=== PATIENT | male | born 1945 | race Hispanic/Latino ===

== ENCOUNTER 2018-10-11 12:41 | Observation (INO) | payer OTHER ==
[2018-10-11] MEDS ORDERED: LIDOCAINE 1% W/EPI 1:100,000 MDV 20 ML VIAL ONE ×2 (12:53→16:03)
[2018-10-11] MEDS ORDERED: NA CHLORIDE 0.9% 500 ML ONE (12:59)
[2018-10-11] MEDS ORDERED: DOXYCYCLINE 100 MG CAP PO ONE (12:59)
[2018-10-11] MEDS ORDERED: CEFAZOLIN/SWI 1gm 2 GM/20 ML SYR ONE (13:00)
[2018-10-11] MEDS ORDERED: TETANUS & DIPHTHERIA TOX,ADULT 0.5 ML VIAL ONE (13:00)
[2018-10-11 13:39] LABS: Absolute Lymphocytes (CBC) 0.9 K/uL (0.7-4.9); Basophils % 1.3 % (0-1.3); Hematocrit 30.8 % (39.6-49.0); MPV 10.2 fL (7.6-11.3); RBC Red Blood Cell Count 3.19 M/uL (4.33-5.43)
[2018-10-11] MEDS ORDERED: ONDANSETRON 4 MG/2 ML VIAL ONE ×2 (13:48→17:35)
[2018-10-11 14:12] LABS: Albumin 3.2 g/dL (3.4-5.0); Bilirubin Total 0.4 mg/dL (0.2-1.0); Potassium 4.3 mmol/L (3.5-5.1); Protein, Total 6.2 g/dL (6.4-8.2)
--- NOTE | 2018-10-11 14:27 | RAD REPORT ---
EXAM DESCRIPTION: RAD - Hand Right 3 View - 10/11/2018 1:40 pm CLINICAL HISTORY: Right hand pain, laceration COMPARISON: None. FINDINGS: No fracture is identified. There is no dislocation or periosteal reaction noted. Prominen t degenerative change involves the second DIP joint and IP joint of the thumb. Less prominent degener ative changes elsewhere in the IP joints. Moderate first MCP joint degenerative change. Bandaging is in place. No air or foreign body seen. IMPRESSION: No acute bone finding. No foreign body.
--- NOTE | 2018-10-11 14:28 | RAD REPORT ---
EXAM DESCRIPTION: RAD - Tib Fib Right - 10/11/2018 1:42 pm CLINICAL HISTORY: Leg pain, laceration, possible foreign body COMPARISON: None. FINDINGS: No fracture is identified. There is no dislocation or periosteal reaction noted. No acute or suspicious bony finding. No foreign body in the soft tissues. Arterial calcifications are present. IMPRESSION: No foreign body. No acute bone finding.
--- NOTE | 2018-10-11 16:48 | ER ---
Nurse's Notes [facility] Name: Constantine Bishop Age: 72 yrs Sex: Male : 1945 Arrival Date: 10/11/2018 Time: 12:42 Bed 5 Private MD: Unknown, Unknown Diagnosis: Syncope and collapse;Fall due to bumping against object;Laceration without foreign body of right hand;Laceration without foreign body, right lower leg;Anemia, unspecified;Acute kidney failure;Bradycardia, unspecified;Elevated white blood cell count Presentation: 10/11 12:53 Presenting complaint: Patient states: was out fishing, slipped in water, fell into some oyster shells, laceration to right calf and right palm of hand, pt is on blood thinners, pressure dressing applied, bleeding controlled. Transition of care: patient was not received from another setting of care. Complicating Factors: The patient fell landing on an outstretched hand. Onset of symptoms was October 11, 2018. Risk Assessment: Do you want to hurt yourself or someone else? Patient reports no desire to harm self or others. Initial Sepsis Screen: Does the patient meet any 2 criteria? No. Patient's initial sepsis screen is negative. Does the patient have a suspected source of infection? No. Patient's initial sepsis screen is negative. Care prior to arrival: Bleeding of injury controlled. Injury dressed. 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 - Social history:: Smoking status: Patient/guardian denies using tobacco. - Family history:: not pertinent. - Ebola Screening: : Patient negative for fever greater than or equal to 101.5 degrees Fahrenheit, and additional compatible Ebola Virus Disease symptoms Patient denies exposure to infectious person Patient denies travel to an Ebola-affected area in the 21 days before illness onset No symptoms or risks identified at this time. Screenin:21 Abuse screen: Denies threats or abuse. Denies injuries from another. Nutritional jl7 screening: No deficits noted. Tuberculosis screening: No symptoms or risk factors identified. Fall Risk IV access (20 points). Total Payton Fall Scale indicates No Risk (0-24 pts). Assessment: 13:00 General: Appears in no apparent distress. uncomfortable, Behavior is calm, cooperative, jl7 appropriate for age. Pain: Complains of pain in right leg and right hand. Neuro: Level of Consciousness is awake, alert, obeys commands, Oriented to person, place, time, situation. Cardiovascular: Patient's skin is warm and dry. Respiratory: Airway is patent Respiratory effort is even, unlabored, Respiratory pattern is regular, symmetrical. Musculoskeletal: Circulation, motion, and sensation intact. Injury Description: Laceration sustained to outer aspect of right palm and medial aspect of right calf is contaminated, 2.6 to 7.5 cm long, was sustained 30-60 minutes ago. is bleeding moderately a dressing was applied. 14:00 Reassessment: Patient appears in no apparent distress at this time. No changes from jl7 previously documented assessment. Patient and/or family updated on plan of care and expected duration. Pain level reassessed. Patient is alert, oriented x 3, equal unlabored respirations, skin warm/dry/pink. 15:00 Reassessment: Patient appears in no apparent distress at this time. No changes from jl7 previously documented assessment. Patient and/or family updated on plan of care and expected duration. Pain level reassessed. Patient is alert, oriented x 3, equal unlabored respirations, skin warm/dry/pink. 15:53 Reassessment: Patient appears in no apparent distress at this time. No changes from jl7 previously documented assessment. Patient and/or family updated on plan of care and expected duration. Pain level reassessed. Patient is alert, oriented x 3, equal unlabored respirations, skin warm/dry/pink. 17:24 Reassessment: Pt was being discharged, pt stood up, reported sudden nausea, appeared jl7 pale a diaphoretic, put pt back in bed and laid him down, ERD notified and reports pt will be admitted to the hospital. 17:50 Reassessment: Dr. Valadez at bedside, pt sat up in bed to have x-ray done, immediately jl7 appeared pale and diaphoretic and reported extreme nausea. 18:30 Reassessment: Pt laying in bed, denies pain, no signs of distress noted at this time. jl7 19:00 General: Appears uncomfortable, Behavior is calm, cooperative, appropriate for age. fc Pain: Complains of pain in right cullen and right hand Quality of pain is described as aching, Is continuous, Aggravated by increased activity, repositioning. Neuro: Level of Consciousness is awake, alert, obeys commands, Oriented to person, place, time, situation, Appropriate for age. Cardiovascular: Denies chest pain, Heart tones S1 S2 Capillary refill < 3 seconds. Respiratory: Airway is patent Trachea midline Respiratory effort is even, unlabored, Respiratory pattern is regular, symmetrical, Breath sounds are clear bilaterally. GI: Abdomen is non-distended, Bowel sounds present X 4 quads. Abd is soft and non tender X 4 quads. : No deficits noted. EENT: No deficits noted. Derm: Skin is pink, warm \T\ dry. dressings intact to right leg and right hand are dry and intact. Musculoskeletal: Circulation, motion, and sensation intact. Capillary refill < 3 seconds, Range of motion: intact in all extremities. 20:00 Reassessment: No changes from previously documented assessment. Patient and/or family fc updated on plan of care and expected duration. Pain level reassessed. Patient is alert, oriented x 3, equal unlabored respirations, skin warm/dry/pink. Pt is aware of pending admission as is his friends that are at bedside. Vital Signs: 12:55 BP 165 / 87; Pulse 68; Resp 18 S; Temp 98.2(TE); Pulse Ox 97% on R/A; iw 15:00 BP 162 / 89; Pulse 63; Resp 16 S; Pulse Ox 96% on R/A; jl7 16:00 BP 140 / 92; Pulse 62; Resp 16 S; Pulse Ox 97% on R/A; bp 17:10 BP 145 / 82; Pulse 67; Resp 16 S; Pulse Ox 100% on R/A; bp 17:27 BP 84 / 72; Pulse 63; Resp 22 S; Pulse Ox 96% on R/A; bp 17:35 BP 125 / 58; Pulse 55; Resp 19; Pulse Ox 99% ; bp 17:58 BP 130 / 66; Pulse 58; Resp 16 S; Pulse Ox 97% on R/A; jl7 18:15 BP 140 / 78; Pulse 60; Resp 16 S; Pulse Ox 98% on R/A; jl7 19:00 BP 140 / 78; Pulse 79; Resp 22; Temp 98.0; Pulse Ox 100% on R/A; Pain 4/10; fc 19:39 BP 163 / 78; Pulse 77; Resp 18; Pulse Ox 98% ; fc 20:09 BP 121 / 83; Pulse 78; Resp 18; Temp 98.1; Pulse Ox 100% ; Pain 4/10; fc 19:39 Pt sitting up eating fc ED Course: 12:42 Patient arrived in ED. as 12:43 Unknown, Unknown is Private Physician. as 12:51 Dangelo Cui MD is Attending Physician. karen 12:55 Triage completed. iw 12:55 Ector Baker, SURY is Primary Nurse. jl7 12:56 Arm band placed on. iw 13:41 Hand Right 3 View XRAY In Process Unspecified. EDMS 13:41 Tib Fib Right XRAY In Process Unspecified. EDMS 13:45 Initial lab(s) drawn, by ut, sent to lab. Inserted saline lock: 20 gauge in left jl7 antecubital area, using aseptic technique. Blood collected. 14:21 Patient has correct armband on for positive identification. Bed in low position. Call jl7 light in reach. Side rails up X 1. Pulse ox on. NIBP on. 15:49 Assist provider with laceration repair on outer aspect of right palm that was between jl7 2.6 to 7.5 cm using sutures. Set up tray. Performed by Dangelo Cui MD Dressed with 4X4s, Patient tolerated well. Assist provider with laceration repair on medial aspect of right calf that was between 7.6 to 12.5 cm using sutures. Set up tray. Performed by Dangelo Cui MD Dressed with 4X4s, Patient tolerated well. 16:46 Camilo Hansen MD is Referral Physician. karen 17:25 Repeat lab(s) drawn. by me, sent to lab. Inserted saline lock: 20 gauge in right jl7 antecubital area, using aseptic technique. Blood collected. 17:43 Jacinto Valadez MD is Hospitalizing Provider. karen 17:48 EKG done, by qc lab technician. reviewed by Dangelo Cui MD. sm3 18:04 XRAY Chest (1 view) In Process Unspecified. EDMS 19:30 Patient admitted, IV remains in place. bb Administered Medications: 13:10 Drug: NS 0.9% 500 ml Route: IV; Rate: bolus; Site: right antecubital; jl7 14:00 Follow up: IV Status: Completed infusion; IV Intake: 500ml [facility] 13:15 Drug: Tetanus-Diphtheria Toxoid Adult 0.5 ml {Flat Breakdown Processor: [employer]. Exp: jl7 05/16/2020. Lot #: [id number]. } Route: IM; Site: right deltoid; 13:30 Follow up: Response: No adverse reaction jl7 13:16 Drug: Ancef 2 grams {Note: Administered slow IVP per protocol.} Route: IVPB; Infused jl Over: 30 mins; Site: left antecubital; 13:20 Follow up: Response: No adverse reaction; IV Status: Completed infusion jl7 13:20 Drug: Doxycycline 200 mg Route: PO; jl7 14:10 Follow up: Response: No adverse reaction 7 13:55 Drug: Zofran 4 mg Route: IVP; Site: left antecubital; jl7 14:00 Follow up: Response: No adverse reaction 7 13:58 Not Given (Wrong pharmacy order): Ancef 2 grams IVPB once over 30 mins; (mix in 100 mL [facility] NS) 16:07 Drug: Lidocaine-Epinephrine -1%: (1:100,000) 20 ml {Note: administered by Dr. andrew Cui.} Volume: 20 ml; Route: Infiltration; 17:10 Drug: Bactrim (160 mg-800 mg (DS) 1 tablet Route: PO; bp 19:28 Follow up: Response: No adverse reaction [facility] 17:30 Drug: NS 0.9% 1000 ml Route: IV; Rate: 1 bolus; Site: right antecubital; bp 19:28 Follow up: IV Status: Completed infusion; IV Intake: 1000ml [facility] 17:30 Drug: Zofran 4 mg Route: IVP; Site: right antecubital; bp 19:03 Follow up: Response: No adverse reaction md1 19:29 Drug: NS 0.9% 1000 ml Route: IV; Rate: 125 ml/hr; Site: right antecubital; jl7 20:10 Follow up: Response: No adverse reaction; No change in condition; IV Status: Infusion fc continued upon admission; IV Intake: 125ml Intake: 14:00 IV: 500ml; Total: 500ml. jl7 19:28 IV: 1000ml; Total: 1500ml. jl7 19:34 PO: 150ml; Total: 1650ml. fc 20:10 IV: 125ml; Total: 1775ml. fc Output: 19:34 Urine: 450ml (Voided); Total: 450ml. fc Outcome: 16:47 Discharge ordered by . karen 17:45 Decision to Hospitalize by Provider. [facility] 19:30 Admitted to Tele accompanied by tech, via stretcher, room 201, with chart, Report bb called to Jennifer GA 19:30 Condition: stable 20:10 Patient left the ED. fc Signatures: Dispatcher [employer] EDDangelo Ruiz MD MD cha Chretien, Felicia, RN RN Margo Alamo Brenda RN RN Deidra Davey RN Anuradha Coates RN RN akEctor Alarcon RN RN James Perez RN RN Aviva Downey 3 Corrections: (The following items were deleted from the chart) 15:50 13:45 No provider procedures requiring assistance completed. jl7 jl7
--- NOTE | 2018-10-11 16:49 | EDPHYS ---
Physician Documentation [facility] Name: Constantine Bishop Age: 72 yrs Sex: Male : 1945 Arrival Date: 10/11/2018 Time: 12:42 Bed 5 Private MD: Unknown, Unknown ED Physician Dangelo Cui HPI: 10/11 12:54 This 72 yrs old Male presents to ER via Unassigned with complaints of karen Laceration To Hand, Laceration To Leg. 12:54 The patient has a laceration related to: falling. The laceration(s) is(are) located on karen the right hand and right leg. Onset: The symptoms/episode began/occurred just prior to arrival. Associated signs and symptoms: The patient has no apparent associated signs or symptoms. The patient has not experienced similar symptoms in the past. Historical: - Allergies: 12:55 No Known Allergies; iw - Home Meds: 14:16 Plavix Oral [Active]; jl7 - PMHx: 14:16 CVA; jl7 - PSHx: 14:16 thrombectomy; jl7 - Immunization history:: Adult Immunizations not up to date. - Social history:: Smoking status: Patient/guardian denies using tobacco. - Family history:: not pertinent. - Ebola Screening: : Patient negative for fever greater than or equal to 101.5 degrees Fahrenheit, and additional compatible Ebola Virus Disease symptoms Patient denies exposure to infectious person Patient denies travel to an Ebola-affected area in the 21 days before illness onset No symptoms or risks identified at this time. ROS: 12:55 Constitutional: Negative for fever, chills, and weight loss, Eyes: Negative for injury, karen pain, redness, and discharge, ENT: Negative for injury, pain, and discharge, Neck: Negative for injury, pain, and swelling, Cardiovascular: Negative for chest pain, palpitations, and edema, Respiratory: Negative for shortness of breath, cough, wheezing, and pleuritic chest pain, Abdomen/GI: Negative for abdominal pain, nausea, vomiting, diarrhea, and constipation, Back: Negative for injury and pain, : Negative for injury, bleeding, discharge, and swelling, Skin: Negative for injury, rash, and discoloration, Neuro: Negative for headache, weakness, numbness, tingling, and seizure, Psych: Negative for depression, anxiety, suicide ideation, homicidal ideation, and hallucinations, Allergy/Immunology: Negative for hives, rash, and allergies, Endocrine: Negative for neck swelling, polydipsia, polyuria, polyphagia, and marked weight changes, Hematologic/Lymphatic: Negative for swollen nodes, abnormal bleeding, and unusual bruising. 12:55 MS/extremity: Positive for decreased range of motion, pain, tenderness, of the right hand and right leg. Exam: 12:55 Constitutional: This is a well developed, well nourished patient who is awake, alert, karen and in no acute distress. Head/Face: Normocephalic, atraumatic. Eyes: Pupils equal round and reactive to light, extra-ocular motions intact. Lids and lashes normal. Conjunctiva and sclera are non-icteric and not injected. Cornea within normal limits. Periorbital areas with no swelling, redness, or edema. ENT: Nares patent. No nasal discharge, no septal abnormalities noted. Tympanic membranes are normal and external auditory canals are clear. Oropharynx with no redness, swelling, or masses, exudates, or evidence of obstruction, uvula midline. Mucous membranes moist. Neck: Trachea midline, no thyromegaly or masses palpated, and no cervical lymphadenopathy. Supple, full range of motion without nuchal rigidity, or vertebral point tenderness. No Meningismus. Chest/axilla: Normal chest wall appearance and motion. Nontender with no deformity. No lesions are appreciated. Cardiovascular: Regular rate and rhythm with a normal S1 and S2. No gallops, murmurs, or rubs. Normal PMI, no JVD. No pulse deficits. Respiratory: Lungs have equal breath sounds bilaterally, clear to auscultation and percussion. No rales, rhonchi or wheezes noted. No increased work of breathing, no retractions or nasal flaring. Abdomen/GI: Soft, non-tender, with normal bowel sounds. No distension or tympany. No guarding or rebound. No evidence of tenderness throughout. Back: No spinal tenderness. No costovertebral tenderness. Full range of motion. Male : Normal genitalia with no discharge or lesions. Neuro: Awake and alert, GCS 15, oriented to person, place, time, and situation. Cranial nerves II-XII grossly intact. Motor strength 5/5 in all extremities. Sensory grossly intact. Cerebellar exam normal. Normal gait. Psych: Awake, alert, with orientation to person, place and time. Behavior, mood, and affect are within normal limits. 12:55 Skin: injury, laceration(s), the wound is approximately 2.53 cm(s), with a depth of .25 cm(s), of the right hand, the second wound is approximately 7 cm(s), with a depth of .5 cm(s), of the right cullen. Vital Signs: 12:55 BP 165 / 87; Pulse 68; Resp 18 S; Temp 98.2(TE); Pulse Ox 97% on R/A; iw 15:00 BP 162 / 89; Pulse 63; Resp 16 S; Pulse Ox 96% on R/A; jl7 16:00 BP 140 / 92; Pulse 62; Resp 16 S; Pulse Ox 97% on R/A; bp 17:10 BP 145 / 82; Pulse 67; Resp 16 S; Pulse Ox 100% on R/A; bp 17:27 BP 84 / 72; Pulse 63; Resp 22 S; Pulse Ox 96% on R/A; bp 17:35 BP 125 / 58; Pulse 55; Resp 19; Pulse Ox 99% ; bp 17:58 BP 130 / 66; Pulse 58; Resp 16 S; Pulse Ox 97% on R/A; jl7 18:15 BP 140 / 78; Pulse 60; Resp 16 S; Pulse Ox 98% on R/A; jl7 19:00 BP 140 / 78; Pulse 79; Resp 22; Temp 98.0; Pulse Ox 100% on R/A; Pain 4/10; fc 19:39 BP 163 / 78; Pulse 77; Resp 18; Pulse Ox 98% ; fc 20:09 BP 121 / 83; Pulse 78; Resp 18; Temp 98.1; Pulse Ox 100% ; Pain 4/10; fc 19:39 Pt sitting up eating fc Laceration: 16:42 Wound Repair of 3.5cm ( 1.4in ) subcutaneous laceration to right hand and right leg. karen Irregularly shaped.. Arterial bleeding noted.. Distal neuro/vascular/tendon intact. Anesthesia: Local anesthetic administered with 6 mls of 1% lidocaine w/ Epi. Wound prep: Moderate cleansing by me, Copious irrigation. Skin closed with 8 5-0 Prolene using vertical mattress sutures and sterile technique. Dressed with Neosporin. Patient tolerated well. 16:45 Wound Repair of 10cm ( 3.9in ) subcutaneous laceration to right leg. Irregularly karen shaped.. Skin/tissue flap noted.. Distal neuro/vascular/tendon intact. Anesthesia: Local anesthetic administered with 15 mls of 1% lidocaine w/ Epi. Wound prep: Extensive cleansing with betadine by wy, Copious irrigation. Skin closed with 10 4-0 Prolene using vertical mattress sutures and sterile technique. Dressed with Neosporin. Patient tolerated well. MDM: 12:55 Data reviewed: vital signs, nurses notes, lab test result(s), radiologic studies. [facility] 12:58 Patient medically screened. [facility] 10/11 12:57 Order name: CBC with Diff; Complete Time: 16:42 [facility] 10/11 12:57 Order name: Comprehensive Metabolic Panel; Complete Time: 16:42 [facility] 10/11 17:32 Order name: Basic Metabolic Panel; Complete Time: 18:27 [facility] 10/11 17:32 Order name: CBC with Diff [facility] 10/11 17:32 Order name: LFT's; Complete Time: 18:27 [facility] 10/11 17:32 Order name: Magnesium; Complete Time: 18:27 [facility] 10/11 12:54 Order name: Hand Right 3 View XRAY; Complete Time: 16:42 [facility] 10/11 12:54 Order name: Tib Fib Right XRAY; Complete Time: 16:42 [facility] 10/11 17:32 Order name: NT PRO-BNP; Complete Time: 18:27 [facility] 10/11 17:32 Order name: PT-INR; Complete Time: 18:27 [facility] 10/11 17:32 Order name: Troponin (emerg Dept Use Only); Complete Time: 18:27 [facility] 10/11 17:32 Order name: XRAY Chest (1 view) [facility] 10/11 17:32 Order name: Type And Screen karen 10/11 12:54 Order name: Prolene, Sutures; Complete Time: 12:56 [facility] 10/11 12:54 Order name: Gloves, Sterile; Complete Time: 12:56 [facility] 10/11 12:54 Order name: Setup Suture Tray; Complete Time: 12:56 [facility] 10/11 17:32 Order name: EKG; Complete Time: 17:33 [facility] 09/06 17:32 Order name: Cardiac monitoring; Complete Time: 17:44 [facility] 10/11 17:32 Order name: EKG - Nurse/Tech; Complete Time: 17:44 [facility] 10/11 17:32 Order name: IV Saline Lock; Complete Time: 17:44 [facility] 10/11 17:32 Order name: Labs collected and sent; Complete Time: 17:44 [facility] 10/11 17:32 Order name: O2 Per Protocol; Complete Time: 17:44 [facility] 10/11 17:32 Order name: O2 Sat Monitoring; Complete Time: 17:44 [facility] Administered Medications: 13:10 Drug: NS 0.9% 500 ml Route: IV; Rate: bolus; Site: right antecubital; jl7 14:00 Follow up: IV Status: Completed infusion; IV Intake: 500ml jl 13:15 Drug: Tetanus-Diphtheria Toxoid Adult 0.5 ml {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 Exp: jl7 05/16/2020. Lot #: [id number]. } Route: IM; Site: right deltoid; 13:30 Follow up: Response: No adverse reaction [facility] 13:16 Drug: Ancef 2 grams {Note: Administered slow IVP per protocol.} Route: IVPB; Infused jl7 Over: 30 mins; Site: left antecubital; 13:20 Follow up: Response: No adverse reaction; IV Status: Completed infusion jl 13:20 Drug: Doxycycline 200 mg Route: PO; jl7 14:10 Follow up: Response: No adverse reaction jl7 13:55 Drug: Zofran 4 mg Route: IVP; Site: left antecubital; jl7 14:00 Follow up: Response: No adverse reaction [facility] 13:58 Not Given (Wrong pharmacy order): Ancef 2 grams IVPB once over 30 mins; (mix in 100 mL jl7 NS) 16:07 Drug: Lidocaine-Epinephrine -1%: (1:100,000) 20 ml {Note: administered by Dr. andrew Cui.} Volume: 20 ml; Route: Infiltration; 17:10 Drug: Bactrim (160 mg-800 mg (DS) 1 tablet Route: PO; bp 19:28 Follow up: Response: No adverse reaction jl7 17:30 Drug: NS 0.9% 1000 ml Route: IV; Rate: 1 bolus; Site: right antecubital; bp 19:28 Follow up: IV Status: Completed infusion; IV Intake: 1000ml jl7 17:30 Drug: Zofran 4 mg Route: IVP; Site: right antecubital; bp 19:03 Follow up: Response: No adverse reaction ak1 19:29 Drug: NS 0.9% 1000 ml Route: IV; Rate: 125 ml/hr; Site: right antecubital; jl7 20:10 Follow up: Response: No adverse reaction; No change in condition; IV Status: Infusion fc continued upon admission; IV Intake: 125ml Disposition: 10/11/18 17:45 Hospitalization ordered by Jacinto Valadez for Inpatient Admission. Preliminary diagnosis are Syncope and collapse, Fall due to bumping against object, Laceration without foreign body of right hand, Laceration without foreign body, right lower leg, Anemia, unspecified, Acute kidney failure, Bradycardia, unspecified, Elevated white blood cell count. - Bed requested for Telemetry/MedSurg (Inpatient). - Status is Inpatient Admission. fc - Condition is Fair. - Problem is new. - Symptoms have improved. UTI on Admission? No Signatures: Dispatcher [employer] EDMS Loren Sung Corey, MD MD cha Chretien, Felicia RN RN Deidra Thurston RN RN Ector Baker RN RN jl7 James Max RN RN bp Krenek, Amber RN ak1 Corrections: (The following items were deleted from the chart) 17:42 16:47 10/11/2018 16:47 Discharged to Home. Impression: Laceration without foreign body, karen right lower leg; Laceration without foreign body of right hand; Fall due to bumping against object. Condition is Stable. Forms are Medication Reconciliation Form, Thank You Letter, Antibiotic Education, Prescription Opioid Use. Follow up: Camilo Hansen; When: 2 - 3 days; Reason: Recheck today's complaints, Continuance of care, Re-evaluation by your physician. Problem is new. Symptoms have improved. karen 17:46 17:45 Hospitalization Ordered by Jacinto Valadez MD for Inpatient Admission. Preliminary karen diagnosis is Syncope and collapse; Fall due to bumping against object; Laceration without foreign body of right hand; Laceration without foreign body, right lower leg; Anemia, unspecified. Bed requested for Telemetry/MedSurg (Inpatient). Status is Inpatient Admission. Condition is Fair. Problem is new. Symptoms have improved. UTI on Admission? No. karen 18:00 17:46 10/11/2018 17:45 Hospitalization Ordered by Jacinto Valadez MD for Inpatient karen Admission. Preliminary diagnosis is Syncope and collapse; Fall due to bumping against object; Laceration without foreign body of right hand; Laceration without foreign body, right lower leg; Anemia, unspecified; Acute kidney failure. Bed requested for Telemetry/MedSurg (Inpatient). Status is Inpatient Admission. Condition is Fair. Problem is new. Symptoms have improved. UTI on Admission? No. karen 18:27 18:00 10/11/2018 17:45 Hospitalization Ordered by Jacinto Valadez MD for Inpatient karen Admission. Preliminary diagnosis is Syncope and collapse; Fall due to bumping against object; Laceration without foreign body of right hand; Laceration without foreign body, right lower leg; Anemia, unspecified; Acute kidney failure; Bradycardia, unspecified. Bed requested for Telemetry/MedSurg (Inpatient). Status is Inpatient Admission. Condition is Fair. Problem is new. Symptoms have improved. UTI on Admission? No. karen 18:38 18:27 10/11/2018 17:45 Hospitalization Ordered by Jacinto Valadez MD for Inpatient bd Admission. Preliminary diagnosis is Syncope and collapse; Fall due to bumping against object; Laceration without foreign body of right hand; Laceration without foreign body, right lower leg; Anemia, unspecified; Acute kidney failure; Bradycardia, unspecified; Elevated white blood cell count. Bed requested for Telemetry/MedSurg (Inpatient). Status is Inpatient Admission. Condition is Fair. Problem is new. Symptoms have improved. UTI on Admission? No. karen 20:10 18:38 10/11/2018 17:45 Hospitalization Ordered by Jacinto Valadez MD for Inpatient fc Admission. Preliminary diagnosis is Syncope and collapse; Fall due to bumping against object; Laceration without foreign body of right hand; Laceration without foreign body, right lower leg; Anemia, unspecified; Acute kidney failure; Bradycardia, unspecified; Elevated white blood cell count. Bed requested for Telemetry/MedSurg (Inpatient). Status is Inpatient Admission. Condition is Fair. Problem is new. Symptoms have improved. UTI on Admission? No. bd
[2018-10-11] MEDS ORDERED: SMZ./TMP. 800/160 MG TABLET ONE (17:11)
[2018-10-11] MEDS ORDERED: ONDANSETRON 4 MG (ODT) TAB ONE (17:29)
[2018-10-11] MEDS ORDERED: NA CHLORIDE 0.9% 1,000 ML ONE ×2 (17:34→19:18)
[2018-10-11 17:59] LABS: Absolute Lymphocytes (CBC) 1.4 K/uL (0.7-4.9); Basophils % 0.4 % (0-1.3); MPV 10.6 fL (7.6-11.3); RBC Red Blood Cell Count 3.37 M/uL (4.33-5.43)
[2018-10-11 18:00] LABS: Protime INR 1.11
[2018-10-11 18:17] LABS: ALT/SGPT 18 U/L (12-78); AST/SGOT 13 U/L (15-37); Albumin 3.3 g/dL (3.4-5.0); Alkaline Phosphatase 55 U/L (45-117); BUN Blood Urea Nitrogen 26 mg/dL (7-18); Bicarbonate 24 mmol/L (21-32); Bilirubin Direct 0.2 mg/dL (0-0.2); Bilirubin Total 0.6 mg/dL (0.2-1.0); Glucose Level 159 mg/dL (74-106); NT PRO-BNP 870 pg/mL (<125); Potassium 3.8 mmol/L (3.5-5.1); Protein, Total 6.5 g/dL (6.4-8.2); Sodium Level 145 mmol/L (136-145); Troponin (Emerg Dept Use Only) < 0.02 ng/mL (0.0-0.045)
--- NOTE | 2018-10-11 18:20 | RAD REPORT ---
EXAM DESCRIPTION: Robin Single View10/11/2018 6:06 pm CLINICAL HISTORY: cough COMPARISON: none FINDINGS: The lungs appear clear of acute infiltrate. The heart is normal size. Aorta is tortuous/e ctatic IMPRESSION: No acute abnormalities displayed
[2018-10-11] MEDS ORDERED: ONDANSETRON 4 MG/2 ML VIAL IV PRN (18:26)
[2018-10-11] MEDS: NA CHLORIDE 0.9% 1,000 ML IV SCH (19:00)
[2018-10-11 20:51] LABS: Blood Morphology Comment NOT SEEN (NOT SEEN); Platelet Estimate ADEQ; Urine White Blood Cell Casts OK
[2018-10-11 21:20] VITALS: BMI 30.2
[2018-10-11] MEDS: ENOXAPARIN 30 MG/0.3 ML SQ SCH (22:29)
[2018-10-11] MEDS: CEPHALEXIN 500 MG CAP PO SCH (22:29)
[2018-10-12] MEDS: ACETAMINOPHEN 500 MG TAB PO PRN ×2 (00:15→05:11)
--- NOTE | 2018-10-12 04:43 | HP ---
Date of Admission: 10/11/2018 Chief Complaint: Fall with laceration and syncopal episode. Code Status: Full. History Of Present Illness: History is limited due to patients medical condition. Brothers at bedside have limited information. Patient is a 72-year- old male with past medical history of stroke, status post thrombectomy. Patient was in his usual state of health[place], and had a laceration due to the oysters. Patient came into the ER. His symptoms are constant, moderate, progressively worsening. Had pain and bleeding on his left leg and hand. Patient was sutured by Dr. Cui in the ER. Subsequently, patient had syncopal episode, likely vasovagal, became diaphoretic and symptomatic. His workup showed a creatinine of 1.71, unknown baseline. Patient 's hemoglobin was 10.5. Patient was referred for admission. Past Medical History: History of stroke status post thrombectomy 2 months ago. Does have some heart disease. Surgical History: Thrombectomy. Allergies: NO KNOWN DRUG ALLERGIES. Medications: Plavix. Family History: Noncontributory. Patient denies any history of hypertension or diabetes in the family. Social History: Patient denies any tobacco use or alcohol use. Review of Systems: Ten-point system reviewed and negative except as per HPI. Physical Examination: Vital Signs: Blood pressure 165/87, pulse 68, respirations 18, temperature 98.2 , O2 of 97% on room air. Patient's blood pressure did drop down to the 80s systolic with standing. General: Awake, alert, oriented, in some mild distress, elderly male. HEENT: Normocephalic, atraumatic, PERRLA, EOMI. Dry mucous membranes. Oropharynx is clear. Neck: Supple. No JVD. Trachea midline. CV: S1, S2. Regular rate and rhythm. Peripheral pulses present. Respiratory: Moving air well bilaterally. No wheezing or stridor. No use of accessory muscles. Gastrointestinal: abdomen is soft, nontender, nondistended. Positive bowel sounds. No guarding or rigidity. Extremities: No clubbing, cyanosis, or edema. No calf tenderness. Neuro: Cranial nerves 2-12 intact grossly. No focal neurological deficit. Speech is normal. Skin: Patient has large laceration on the left lower extremity and left hand palmar aspect stitched and bandaged, clean, dry, intact. The patient does have some swelling of the right hand and numbness. Laboratory Data: WBCs 7.1, H and H 10.5 and 30.8, platelets 138, neutrophils 78 %. Repeat labs; WBC 16, H and H 10.7, 33, platelets 155. INR 1.11. Sodium 145 , potassium 4.3, chloride 110, CO2 of 27, BUN 26, creatinine 1.71, glucose 107, calcium 8.5. Imaging studies; hand x-ray of the right shows no acute bone finding. No foreign body. Tib-fib on the right shows no foreign body. No acute bony finding. Chest x-ray shows no acute abnormalities personally reviewed. Assessment: A 72-year-old male with: 1. Syncopal episode, likely vasovagal versus orthostatic hypotension. We will continue IV fluids. Check orthostatic vital signs. 2. Laceration of the right lower extremity and right hand palmar aspect, status post suturing in the ER. X-rays reviewed. We will place on prophylactic Keflex. 3. History of cerebrovascular accident, on Plavix. 4. Apparent coronary artery disease, [place] artery, and [place] heart without angina. 5. Deep vein thrombosis prophylaxis with Lovenox. 6. Acute versus acute on chronic kidney injury. Creatinine is 1.71. We will continue with IV fluids. Monitor creatinine and avoid NSAIDs. Plan: Admit the patient to Med-Surg, place as observation. RBIGHT Voice ID: [id number] MTDD
[2018-10-12 05:06] LABS: Basophils % 0.2 % (0-1.3); Lymphocytes % 8.8 % (15.3-44.8); MPV 10.8 fL (7.6-11.3); RBC Red Blood Cell Count 2.58 M/uL (4.33-5.43)
[2018-10-12] MEDS: CEPHALEXIN 500 MG CAP PO SCH ×3 (05:11→11:29)
[2018-10-12 05:22] LABS: Albumin 2.8 g/dL (3.4-5.0); Bilirubin Total 0.8 mg/dL (0.2-1.0); Magnesium 1.7 mg/dL (1.8-2.4); Phosphorus 3.1 mg/dL (2.5-4.9); Potassium 3.7 mmol/L (3.5-5.1); Protein, Total 5.4 g/dL (6.4-8.2)
[2018-10-12 05:43] LABS: Urine Appearance CLEAR; Urine Bilirubin NEGATIVE (NEG); Urine Blood NEGATIVE (NEG); Urine Color YELLOW; Urine Glucose NEGATIVE (NEG); Urine Microscopic Reflex NO UMIC; Urine Protein NEGATIVE (NEG); Urine Urobilinogen 0.2 mg/dL (0.2-1.0)
[2018-10-12] MEDS: NA CHLORIDE 0.9% 1,000 ML IV SCH (06:41)
--- NOTE | 2018-10-12 07:46 | EKG ---
Test Date: 2018-10-11 Test Time: 17:37:16 Fleet Maintenance Foreman: JOVANNA MEASUREMENT RESULTS: Intervals: Rate: 54 KS: 174 QRSD: 96 QT: 476 QTc: 451 Pedro: P: 48 KS: 174 QRS: 57 T: 156 INTERPRETIVE STATEMENTS: Sinus bradycardia T wave abnormality, non specific Abnormal ECG No previous ECG available for comparison Electronically Signed On 10-12-18 07:45:40 CDT by Ike Buchanan
[2018-10-12] MEDS: ENOXAPARIN 30 MG/0.3 ML SQ SCH (08:22)
[2018-10-12 09:28] VITALS: O2SAT 967
[2018-10-12] MEDS ORDERED: AMIODARONE HCL 200 MG TAB PO SCH (09:48)
--- NOTE | 2018-10-12 12:49 | DS ---
Discharge Diagnoses: 1.Syncopal episode. 2.Laceration of the right lower extremity and right hand. 3.History of cerebrovascular accident. 4.BPH, on tamsulosin. 5.Coronary artery disease of [place] artery and [place] heart without angina. 6.Acute versus acute on chronic kidney injury, improving. 7.Essential hypertension. Hospital Course: Patient is a 72-year-old male with past medical history of CVA, hypertension, BPH, coronary artery disease, comes in with a fall and laceration of his right lower extremity and right h and. Patient received suturing in the ER, was doing well until he had a vagal episode and syncopized . Patient became pale, diaphoretic, and was unable to ambulate on his own without assistance. There fore, patient was admitted to the hospital for further evaluation and treatment. Patient's workup re vealed elevated creatinine level of 1.71, baseline is unknown. This is likely due to dehydration and volume loss. Patient's WBCs were also elevated at 16, which is likely acute phase reactant. His he moglobin did drop from 10.7 to 8.3, likely due to part of the blood loss as well as dilutional from I V fluids. Patient was rehydrated. His blood pressure improved upon admission. It was as low as 80s systolic. His orthostatic vital signs were not positive. However, he did have some minimal symptom s sitting up yesterday. Today, patient worked well with PT, did not have any dizziness, did not have any further syncopal episodes. His etiology was likely due to vasovagal and orthostatic hypotension . Patient does take multiple blood pressure medications, diuretics, as well as alpha-gayle for his BPH. Patient may need some adjustment to his medications. Patient overall did well. He was placed on prophylactic antibiotics for his lacerations. He was given a tetanus shot in the ER. Patient wa s then cleared for discharge. He is doing well overall. No further syncopal episodes. No difficult y ambulating. Patient is to follow up with PCP in 2-3 days. Return to ER for worsening condition an d to have sutures removed in 7 to 10 days by either PCP or back in the ER. Fall precautions. Medications: As per medication reconciliation list. Diet: Heart healthy. Physical Examination: General: Awake, alert, oriented, elderly male, no acute distress, obese. CV: S1, S2. No murmurs. Respiratory: Moving air well bilaterally. Abdomen: Soft, nontender, nondistended. Positive bowel sounds. Extremities: No clubbing, cyanosis, or edema. Neurologic: Nonfocal. Skin: Right lower extremity laceration site is sutured clean, dry, intact. No erythema. Right hand palmar aspect also sutured, bandaged, clean, dry, and intact. /[place]UR[place] Voice ID: [id number] Report ID: [id number]
[2018-10-12 14:08] VITALS: BP 155/68; TEMP 99.5
[2018-10-12] MEDS ORDERED: ATORVASTATIN 40 MG TAB PO SCH (21:00)
[2018-10-12] MEDS ORDERED: METOPROLOL TAR 50 MG TAB PO SCH (21:00)
[2018-10-12] MEDS ORDERED: APIXABAN 2.5 MG TABLET PO SCH (21:00)
[2018-10-12] MEDS ORDERED: TAMSULOSIN 0.4 MG SR CAP PO SCH (21:00)
[2018-10-13] MEDS ORDERED: CLOPIDOGREL 75 MG TABLET PO SCH (09:00)
[2018-10-13] MEDS ORDERED: SPIRONOLACTONE 25 MG TABLET PO SCH (09:00)
[2018-10-13] MEDS ORDERED: hydroCHLOROthiazide 12.5 MG CAP PO SCH (09:00)
[2018-10-13] MEDS ORDERED: LISINOPRIL 20 MG TAB PO SCH (09:00)
[2018-10-13] MEDS ORDERED: HOME MED 1 EA UNK (Lisinopril/Hydrochlorothiazide [Lisinopril-Hctz 20-12.5 Mg Tab] 1 EACH) PO SCH (09:00)
== END 2018-10-12 13:34 | disposition home or self-care (01) ==
LOC: ER 12:41 → ERHOLD 18:21 → 2ND 19:40
PROVIDERS: ADMIT Family Medicine; ATTEND Family Medicine
PROC: 0HQFXZZ Repair Right Hand Skin, External Approach (ICD-10-PCS; principal; 2018-10-11)
PROC: 0HQKXZZ Repair Right Lower Leg Skin, External Approach (ICD-10-PCS; 2018-10-11)
DX: S61.411A Laceration without foreign body of right hand, initial encounter (principal); R55 Syncope and collapse; I25.10 Atherosclerotic heart disease of native coronary artery without angina pectoris; N40.0 Benign prostatic hyperplasia without lower urinary tract symptoms; I10 Essential (primary) hypertension; W26.8XXA Contact with other sharp object(s), not elsewhere classified, initial encounter; Z86.73 Personal history of transient ischemic attack (TIA), and cerebral infarction without residual deficits
CPT/HCPCS: 96361; 93005; 85025 ×3; 80048; 36415; 86900; 83735 ×2; 86850; 84100; 85610; 86901; 80076; 81003; 84484; 80053 ×2; 83880; 71045; 73130; 73590; 90471; 90714; 97116; 97530; 94760 ×2; 96375; 96374; 99285; 12001; 12002; J1650 ×2; J0690; J7030 ×3; J2405 ×2; G0378 ×3

== ENCOUNTER 2018-10-25 10:53 | Emergency (ER) | payer OTHER ==
--- OUTSIDE RECORDS SUMMARY | 2018-10-25 11:00 | XMS REPORT | Continuity of Care Document ---
:1945 Author Organization [facility] Information [place] Care Team Providers Name Role Phone [facility] Information Exchange Unavailable Unavailable Problems Problem Status Onset Classification Date Comments Source Date Reported SYNCOPE Active 05/02/19 [facility] 19 City Persistent atrial 03/22/19 10/01/2018 [facility] fibrillation 19 City DX: A-FIB Active 02/26/19 [facility] 19 City Hypertensive 02/20/19 09/03/2018 [facility] crisis, 19 City unspecified ATRIAL Active 02/13/19 [facility] FIBRILATION, 19 [facility] BENIGN HTN CHEST PAIN Active 02/13/[address] Simple obesity Active Problem 10/01/2018 Medical (disorder) Group,[facility] er Neuro,[facility] Cardiomyopathy, 10/01/2018 [facility] unspecified City 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 Pure 10/01/2018 [facility] hypercholesterolem [facility] ia, unspecified 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 [facility] 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 [facility] therapy 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 Atrial Resolved Problem 10/01/2018 Medical fibrillation Group,[facility] (disorder) er Neuro,[facility] Cataract Resolved Problem 10/01/2018 Medical (disorder) Group,[facility] er Neuro,[facility] Cerebrovascular Active Problem 10/01/2018 Medical accident Group,Misch (disorder) er Neuro,[facility] Hypertensive Resolved Problem 10/01/2018 Medical disorder, systemic Group,[facility] arterial er Neuro, (disorder) [facility] Unspecified atrial 09/03/2018 [facility] fibrillation City Pneumonia, 09/03/2018 [facility] unspecified [facility] organism Acute on chronic 09/03/2018 [facility] combined systolic City (congestive) and diastolic (congestive) heart failure Hyperlipidemia, 09/03/2018 [facility] unspecified City 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 [facility] dependence Esophageal Active Problem 03/02/2018 [facility] dys[facility]agia Health Slow transit Active Problem 03/02/2018 Digestive constipation Health CEREBRAL Active [facility], [facility] UNSPECIFIED Medications Medication Details Route Status Patient Ordering Order Source Instructions Provider Date Lisinopril 40 mg, 2 No Longer tab, Route: Active 2018 [facility] PO, Drug City form: TAB, Daily, Dosing Weight 81.81, kg, Start date: 05/04/18 9:00:00 CDT, Duration: 30 day, Stop date: 06/02/18 9:00:00 CDTNotes: (Same as: Prinivil, Zestril) Cefuroxime 250 MG 250 mg, 1 Inactive Oral Tablet tab, Route: 2018 [facility] PO, Drug [facility] form: TAB, [id number], Dosing Weight 81.81, kg, Start date: 05/03/18 11:00:00 CDT, Duration: 5 day, Stop date: 05/07/18 23:00:00 CDTNotes: (Do Not Crush) With food. (Same As: Ceftin) ticagrelor 90 mg 90 mg=1 Active oral tablet tab, PO, 2018 [facility] Q12H, # 60 City tab, 0 Refill(s), Pharmacy: [facility] Aspirin 81 MG 81 mg=1 Active Enteric Coated tab, PO, 2019 [facility] Tablet Daily, # 30 City tab, 3 Refill(s), Pharmacy: [facility] atorvastatin 40 mg 40 mg=1 Active oral tablet tab, PO, 2019 [facility] Bedtime, # City 30 tab, 0 Refill(s), Pharmacy: [facility] [id number] Hydrochlorothiazide 1 tab, PO, Active 12.5 MG / Lisinopril QAM, # 30 [facility] 20 MG Oral Tablet tab, 0 City Refill(s), Pharmacy: [facility] potassium chloride 20 mEq, 1 Inactive 20 mEq oral tablet, tab, Route: 2018 [facility] extended release PO, Drug [place] form: ERTAB, ONCE, Dosing Weight 81.81, kg, Start date: 05/03/18 10:08:00 CDT, Stop date: 05/03/18 10:08:00 CDTNotes: (Same as: K-Dur 20) "Do Not Crush" Give with food and full glass of water For patients unable to swallow tablet, dissolve in one half glass of water. Allow about 2 minutes for the tablets to disintegrat e. Stir before giving to prepare slurry and administer. Please exclude Patients with feeding tube less than 14 Gambian (Dobhoff, J-tube etc) and pediatric and patients. Lisinopril 30 mg, 3 Inactive tab, Route: 2018 [facility] PO, Drug [place] form: TAB, ONCE, Dosing Weight 81.81, kg, Start date: 05/03/18 10:06:00 CDT, Stop date: 05/03/18 10:06:00 CDTNotes: (Same as: Prinivil, Zestril) Brilinta 90 mg, 1 Inactive tab, Route: 2018 [facility] PO, Drug [place] form: TAB, Q12H, Dosing Weight 81.81, kg, Start date: 05/03/18 9:00:00 CDT, Duration: 30 day, Stop date: 06/01/18 21:00:00 CDTNotes: (Same as: Brilinta) Amiodarone 200 mg, 1 Inactive tab, Route: 2018 [facility] PO, Drug [place] form: TAB, Daily, Dosing Weight 81.81, kg, Start date: 05/03/18 9:00:00 CDT, Duration: 30 day, Stop date: 06/01/18 9:00:00 CDTNotes: (Same as: Cordarone) Aspirin 325 mg, 1 Inactive tab, Route: 2018 [facility] PO, Drug [place] form: ECTAB, Daily, Dosing Weight 81.81, kg, Start date: 05/03/18 9:00:00 CDT, Duration: 30 day, Stop date: 06/01/18 9:00:00 CDTNotes: (Do Not Crush) Do not crush or chew. Melatonin 3 mg, 1 No Longer tab, Route: Active 2018 [facility] PO, Drug [place] form: TAB, ONCE, Dosing Weight 81.81, kg, Start date: 05/02/18 23:47:00 CDT, Stop date: 05/02/18 23:47:00 CDTNotes: (Same as: Melatonin) atorvastatin 40 mg, 1 No Longer tab, Route: Active 2019 [facility] PO, Drug [place] form: TAB, Bedtime, Dosing Weight 81.81, kg, Start date: 05/02/18 21:00:00 CDT, Duration: 30 day, Stop date: 05/31/18 21:00:00 CDTNotes: (Same as: Lipitor) metoprolol tartrate 50 mg, 1 No Longer tab, Route: Active 2018 [facility] PO, Drug [place] form: TAB, Q12H, Dosing Weight 81.81, kg, Start date: 05/02/18 21:00:00 CDT, Duration: 30 day, Stop date: 06/01/18 9:00:00 CDTNotes: (Same as: Lopressor) Lisinopril 10 mg, 1 No Longer tab, Route: Active 2018 [facility] PO, Drug [place] form: TAB, BID, Dosing Weight 81.81, kg, Start date: 05/02/18 17:00:00 CDT, Duration: 30 day, Stop date: 06/01/18 9:00:00 CDTNotes: (Same as: Prinivil, Zestril) Brilinta 180 mg, 3 Inactive tab, Route: 2019 [facility] PO, Drug [place] form: TAB, ONCE, Dosing Weight 81.81, kg, Loading dose, Priority: NOW, Start date: 05/02/18 15:32:00 CDT, Stop date: 05/02/18 15:32:00 CDTNotes: (Same as: Brilinta) Saline Flush 0.9% 10 ml, No Longer Route: IVP, Active 2018 [facility] Drug Form: City INJ, Dosing Weight 81.818, kg, Q12H, Start date: 05/01/18 21:00:00 CDT, Duration: 30 day, Stop date: 05/31/18 9:00:00 CDTNotes: (Same as: BD Posiflush) Zofran 4 mg, 2 mL, No Longer Route: IV, Active 2018 [facility] Drug form: City INJ, ONCE, Dosing Weight 85.5, kg, Start date: 05/01/18 20:14:00 CDT, Stop date: 05/01/18 20:14:00 CDTNotes: (Same as: Zofran) MEDICATION WASTE Product Size: 4 mg Product Wasted: ___ mg Nicardipine 40 mg, 200 No Longer mL, Rate: Active 2018 [facility] Start Dose: 5 mg/hr, Titration: 2.5 mg/hr every 15 minutes, Goal(s): SBP 100 -130, Max Dose: 15 mg/hr, Route: IV, Dosing Weight 85.5 kg, Total Volume: 200, Start date: 05/01/18 18:20:00 CDT, Duration: 30 day, Stop date: 0...Notes: Same as: Gerry Padilla on: (0.2 mg /1 ml ) Streptococcus 0.5 mL, No Longer pneumoniae serotype Route: IM, Active 2018 [facility] 1 capsular antigen Drug Form: [facility] diphtheria [id number] INJ, protein conjugate ONCALL, vaccine / Start date: Streptococcus 05/01/18 pneumoniae serotype 17:37:19 14 capsular antigen CDT, Stop diphtheria [id number] date: protein conjugate 05/31/18 vaccine / 17:32:19 Streptococcus CDTNotes: pneumoniae serotype Shake well 18C capsular antigen prior to d use (Same as: Prevnar 13) influenza virus 0.5 mL, No Longer vaccine, inactivated Route: IM, [address] high-dose Drug Form: [facility] preservative-free SUSP, kg, intramuscular ONCALL, suspension Start date: 05/01/18 17:36:48 CDT, Stop date: 05/31/18 17:31:48 CDTNotes: (Same as: Fluzone High-Dose) For 65 years of age of older (0.5 ml IM) Shake well before use Saline Flush 0.9% 10 ml, No Longer Route: IVP, [address] Drug Form: [facility] INJ, Dosing Weight 81.818, kg, PRN, PRN Line Flush, Start date: 05/01/18 16:42:00 CDT, Duration: 30 day, Stop date: 05/31/18 16:41:00 CDTNotes: (Same as: BD Posiflush) eptifibatide 7,363.62 Inactive microgram, [address] [place] [address] Route: IVP, [facility] ONCE, Dosing Weight 81.818, kg, Start date: 05/01/18 15:55:00 CDT, Stop date: 05/01/18 15:55:00 CDT eptifibatide 0.75 75 mg, 100 No Longer MG/ML Injectable mL, Rate: 1 Active 2018 [facility] Solution micrograms/ [facility] kg/min, Dosing Weight 81.818, kg, Route: IV, Total Volume: 100, Start date: 05/01/18 15:55:00 CDT, Duration: 18 hr, Stop date: 05/02/18 9:54:00 CDT, Replace Every: 24 hrNotes: (Same as: Integrelin) Final conc=0.75 mg/mL - Premix Bottle Dextrose 50% Syringe 25 gm, 50 No Longer mL, Route: [address] IVP, Drug City Form: INJ, Dosing Weight 81.818, kg, PRN, PRN Blood Glucose Results, Start date: 05/01/18 14:30:00 CDT, Duration: 30 day, Stop date: 05/31/18 14:29:00 CDT Glucagon 1 mg, No Longer Route: IM, [address] Drug form: [facility] PDR/INJ, PRN, Dosing Weight 81.818, kg, PRN Blood Glucose Results, Start date: 05/01/18 14:30:00 CDT, Duration: 30 day, Stop date: 05/31/18 14:29:00 CDT Saline Flush 0.9% 10 mL, No Longer Route: IVP, [address] Drug Form: [facility] INJ, Dosing Weight 81.818, kg, PRN, PRN Line Flush, Start date: 05/01/18 12:53:00 CDT, Duration: 30 day, Stop date: 05/31/18 12:52:00 CDTNotes: (Same as: BD Posiflush) Furosemide 20 MG 20 mg=1 No Longer Oral Tablet tab, PO, [address] Daily, # 60 City tab, 0 Refill(s), Pharmacy: [facility] AMIODarone 200 mg 200 mg=1 Active oral tablet tab, PO, 2018 [facility] Daily, # 30 City tab, 0 Refill(s), Pharmacy: [facility] lisinopril 10 mg 10 mg=1 No Longer oral tablet tab, PO, Active 2018 [facility] BID City tamsulosin 0.4 mg 0.4 mg=1 Active Medical oral capsule cap, PO, 2018 [facility] Daily, # 30 cap, 0 Refill(s) spironolactone 25 mg 25 mg=1 Active oral tablet tab, PO, 2018 [facility] QPM, # 30 City tab, 0 Refill(s), Pharmacy: [facility] metoprolol tartrate 50 mg=1 Active 50 mg oral tablet tab, PO, 2018 [facility] BID, # 60 City tab, 0 Refill(s), Pharmacy: [facility] lisinopril 5 mg oral 5 mg=1 tab, No Longer tablet PO, BID, # Active 2019 [facility] 60 tab, 0 City Refill(s), Pharmacy: [facility] Furosemide 20 MG 20 mg=1 No Longer Oral Tablet tab, PO, Active 2018 [facility] BID, # 60 City tab, 0 Refill(s), Pharmacy: [facility] 4538 apixaban 5 mg oral 5 mg=1 tab, No Longer tablet PO, BID, # Active 2019 [facility] 60 tab, 0 City Refill(s), Pharmacy: [facility]38 AMIODarone 200 mg 200 mg=1 No Longer oral tablet tab, PO, Active 2018 [facility] BID, # 60 City tab, 0 Refill(s), Pharmacy: [facility]38 Azithromycin 3 Day 500 mg=1 No Longer Dose Pack 500 mg tab, PO, Active 2018 [facility] oral tablet Daily, X 3 City day, # 1 Pack, 0 Refill(s), Pharmacy: [facility]38 Azithromycin 3 Day 500 mg=1 Inactive Dose Pack 500 mg tab, PO, 2018 [facility] oral tablet Daily, X 3 City day, # 1 Pack, 0 Refill(s), Pharmacy: [facility] [place] [address] spironolactone 25 mg 25 mg=1 Inactive oral tablet tab, PO, 2018 [facility] Daily, # 30 City tab, 0 Refill(s), Pharmacy: [facility] [address] metoprolol tartrate 50 mg=1 Inactive 50 mg oral tablet tab, PO, 2018 [facility] BID, # 60 City tab, 0 Refill(s), Pharmacy: [facility] [address] lisinopril 5 mg oral 5 mg=1 tab, Inactive tablet PO, BID, # 2019 [facility] 60 tab, 0 City Refill(s), Pharmacy: [facility] [address] Furosemide 20 MG 20 mg=1 Inactive Oral Tablet tab, PO, 2019 [facility] BID, # 60 City tab, 0 Refill(s), Pharmacy: [facility] apixaban 5 mg oral 5 mg=1 tab, Inactive tablet PO, BID, # 2019 [facility] 60 tab, 0 City Refill(s), Pharmacy: [facility] [address] AMIODarone 200 mg 200 mg=1 Inactive oral tablet tab, PO, 2018 [facility] BID, # 60 City tab, 0 Refill(s), Pharmacy: [facility] [address] Amiodarone 200 mg, 1 Inactive tab, Route: 2018 [facility] PO, Drug [place] form: TAB, BID, Dosing Weight 77.273, kg, Start date: 02/14/18 9:00:00 TARIFF CLERK, Duration: 30 day, Stop date: 03/15/18 17:00:00 CSTNotes: (Same as: Cordarone) Furosemide 20 MG 20 mg, 1 Inactive Oral Tablet tab, Route: 2018 [facility] PO, Drug [place] form: TAB, BID, Dosing Weight 77.273, kg, Start date: 02/14/18 9:00:00 TARIFF CLERK, Duration: 30 day, Stop date: 03/15/18 17:00:00 CSTNotes: (Same as: Lasix) May cause GI upset. Give with food or milk. metoprolol tartrate 50 mg, 1 Inactive tab, Route: 2018 [facility] PO, Drug [place] form: TAB, BID, Dosing Weight 77.273, kg, Start date: 02/14/18 9:00:00 TARIFF CLERK, Duration: 30 day, Stop date: 03/15/18 17:00:00 CSTNotes: (Same as: Lopressor) Ceftriaxone 1 gm, No Longer Route: Active [address] [place] [address] [id number], Dosing Weight 77.273, kg, Start date: 02/13/18 21:00:00 TARIFF CLERK, Duration: 7 day, Stop date: 02/19/18 21:00:00 TARIFF CLERK, ABX Indication: PneumoniaNo candy: (Same As: Rocephin). Use with 100 mL NS and infuse over 30 min MEDICATION WASTE Product Size: 1000 mg Product Wasted: ___ mg Azithromycin 500 mg, No Longer Route: Active [address] [place], [place] [id number], Dosing Weight 77.273, kg, Start date: 02/13/18 21:00:00 TARIFF CLERK, Duration: 5 day, Stop date: 02/17/18 21:00:00 TARIFF CLERK, ABX Indication: PneumoniaNo candy: (Same As: Zithromax IV) Ibuprofen 200 MG 200 mg=1 No Longer Oral Tablet [Advil] tab, PO, Active [address] [place] [address] Q4H, PRN City Pain Spironolactone 25 mg, 1 No Longer tab, Route: Active 2018 [facility] PO, Drug [place] form: TAB, Daily, Dosing Weight 77.273, kg, Start date: 02/13/18 17:00:00 TARIFF CLERK, Duration: 30 day, Stop date: 03/15/18 9:00:00 CSTNotes: (Same As: Aldactone) Eliquis 5 mg, 1 No Longer tab, Route: Active 2018 [facility] PO, Drug [place] form: TAB, BID, Dosing Weight 77.273, kg, Start date: 02/13/18 17:00:00 TARIFF CLERK, Duration: 30 day, Stop date: 03/15/18 9:00:00 CSTNotes: Same as: Eliquis Lisinopril 5 mg, 1 No Longer tab, Route: Active 2018 [facility] PO, Drug [place] form: TAB, BID, Dosing Weight 77.273, kg, Priority: STAT, Start date: 02/13/18 16:42:00 TARIFF CLERK, Duration: 30 day, Stop date: 03/15/18 9:00:00 CSTNotes: (Same as: Prinivil, Zestril) Furosemide 20 mg, 2 No Longer mL, Route: Active 2018 [facility] IVP, Drug [facility] form: INJ, BID, Dosing Weight 77.273, kg, Priority: STAT, Start date: 02/13/18 16:42:00 TARIFF CLERK, Duration: 4 doses or times, Stop date: 02/14/18 17:00:00 CSTNotes: (Same as: Lasix) metoprolol tartrate 25 mg, 1 No Longer tab, Route: Active 2018 [facility] PO, Drug [facility] form: TAB, Q6H, Dosing Weight 77.273, kg, Priority: STAT, Start date: 02/13/18 16:42:00 TARIFF CLERK, Duration: 30 day, Stop date: 03/15/18 12:00:00 CSTNotes: (Same as: Lopressor) Labetalol 20 mg, 4 Inactive mL, Route: 2019 [facility] IVP, Drug [facility] form: INJ, ONCE, Dosing Weight 77.273, kg, Priority: STAT, Start date: 02/13/18 16:22:00 TARIFF CLERK, Stop date: 02/13/18 16:22:00 CSTNotes: (Same as: Normodyne, Trandate) Push over 2 minutes Give bolus over 2-3 minutes. Saline Flush 0.9% 10 mL, No Longer Route: IVP, Active [address] [place] [address] Drug Form: City INJ, Dosing Weight 85.909, kg, PRN, PRN Line Flush, Start date: 02/13/18 15:20:00 TARIFF CLERK, Duration: 30 day, Stop date: 03/15/18 15:19:00 CSTNotes: (Same as: BD Posiflush) furosemide 1 tab(s) orally Active 20 mg orally [facility] metoprolol 1 tab(s) orally Active 50 mg orally [facility] lisinopril 1 tab(s) orally Active 10 mg orally [facility] Eliquis 1 tab(s) orally Active 5 mg orally 2 [facility] spironolactone 1 tab(s) orally Active 25 mg orally [facility] amiodarone 1 tab(s) orally Active 200 mg orally [facility] Allergies, Adverse Reactions, Alerts Substance Category Reaction Severity Reaction Status Date Comments Source type Reported N.K.D.A. Adverse Info Not Adverse Active Digestive Reaction Available Reaction 9 Health NKFA Assertion Food Active allergy [facility] No Known Assertion Drug Medication allergy [facility] Immunizations No Data Provided for This Section Results Order Name Results Value Reference Date Interpretation Comments Source Range CHEM PANEL Magnesium 1.9 1.8 - 2.4 05/03 Lvl [facility] CHEM PANEL Alk Phos 65 39 - 136 05/03 [facility] CHEM PANEL Sodium Lvl 143 135 - 145 05/03 [facility] CHEM PANEL Potassium 3.4 3.5 - 5.1 05/03 Lvl [facility] CHEM PANEL Chloride Lvl 109 95 - 109 05/03 [facility] CHEM PANEL Calcium Lvl 8.3 8.5 - 10.5 05/03 [facility] CHEM PANEL ALT 17 0 - 65 05/03 [facility] CHEM PANEL CO2 27 24 - 32 05/03 [facility] CHEM PANEL Albumin Lvl 2.9 3.5 - 5.0 05/03 [facility] CHEM PANEL BUN 11 7 - 22 05/03 [facility] CHEM PANEL Glucose Lvl 99 70 - 99 05/03 [facility] CHEM PANEL Creatinine 0.82 0.50 - 05/03 Lvl 1.40 [facility] CHEM PANEL eGFR 88 05/03 Result Comment: [facility] eGFR is City calculated using the CKD-EPI formula. In most young, healthy individuals the eGFR will be >90 mL/min/1.73m2 . The eGFR declines with age. An eGFR of 60-89 may be normal in some populations, particularly the elderly, for whom the CKD-EPI formula has not been extensively validated. Use of the eGFR is not recommended in the following populations:< br/>
Scarlett viduals with unstable creatinine concentration s, including patients and those with serious co-morbid conditions.<b r/>
Patie nts with extremes in muscle mass or diet.

The data above are obtained from the National Kidney Disease Education Program (NKDEP) which additionally recommends that when the eGFR is used in patients with extremes of body mass index for purposes of drug dosing, the eGFR should be multiplied by the estimated BMI. CHEM PANEL AST 14 0 - 37 05/03 [facility] CHEM PANEL Total 6.3 6.4 - 8.4 05/03 MH Protein [facility] CHEM PANEL Bili Total 1.1 0.2 - 1.3 05/03 [facility] CHEM PANEL AGAP 10.4 10.0 - 05/03 MH 20.0 [facility] CHEM PANEL B/C Ratio 13 6 - 25 05/03 [facility] CHEM PANEL A/G Ratio 0.9 0.7 - 1.6 05/03 [facility] CHEM PANEL Globulin 3.4 2.7 - 4.2 05/03 [facility] CHEM PANEL Phosphorus 2.4 2.5 - 4.5 05/03 [facility] HEMATOLOGY Plav Effect 24 05/03 MH Plt /2018 [facility] HEMATOLOGY MCHC 33.6 32.0 - 05/03 MH 36.0 [facility] HEMATOLOGY Platelet 160 133 - 450 05/03 [facility] HEMATOLOGY RDW 13.6 11.5 - 05/03 MH 14.5 [facility] HEMATOLOGY MPV 10.2 7.4 - 10.4 05/03 [facility] HEMATOLOGY MCH 31.3 27.0 - 05/03 MH 31.0 [facility] HEMATOLOGY WBC 7.4 3.7 - 10.4 05/03 [facility] HEMATOLOGY RBC 4.01 4.70 - 05/03 MH 6.10 [facility] HEMATOLOGY Hct 37.3 42.0 - 05/03 MH 54.0 [facility] HEMATOLOGY Hgb 12.5 14.0 - 05/03 MH 18.0 [facility] HEMATOLOGY MCV 93.0 80.0 - 05/03 MH 94.0 [facility] HEMATOLOGY Monocytes # 0.6 0.0 - 0.8 05/03 [facility] HEMATOLOGY Basophils # 0.1 0.0 - 0.2 05/03 [facility] HEMATOLOGY Eosinophils 0.3 0.0 - 0.5 05/03 MH [facility] HEMATOLOGY Eosinophils 4.3 0.0 - 4.0 05/03 /2018 [facility] HEMATOLOGY Basophils 1.0 0.0 - 1.0 05/03 /2018 [facility] HEMATOLOGY Neutrophils 5.4 1.5 - 8.1 05/03 MH # /2018 [facility] HEMATOLOGY Lymphocytes 1.0 1.0 - 5.5 05/03 MH # /2018 [facility] HEMATOLOGY Lymphocytes 14.0 20.0 - 05/03 MH 40.0 [facility] HEMATOLOGY Segs 72.7 45.0 - 05/03 75.0 [facility] HEMATOLOGY Monocytes 8.0 2.0 - 12.0 05/03 [facility] URINE AND UA Blood Large Negative 05/02 STOOL *ABN* /2018 [facility] (05/02/18 8:43 AM) [facility] URINE AND UA Bili Negative Negative 05/02 STOOL *NA* /2018 [facility] (05/02/18 8:43 AM) [facility] URINE AND UA Glucose Negative Negative 05/02 STOOL (05/02/18 8:43 AM) /2018 [facility] URINE AND UA Protein 30 mg/dL Negative 05/02 STOOL mg/dL [facility] URINE AND UA 2.0 0.1 - 1.0 05/02 STOOL Urobilinogen /2018 [facility] URINE AND UA Nitrite Negative Negative 05/02 STOOL (05/02/18 8:43 AM) /2018 [facility] URINE AND UA Leuk Est Trace Negative 05/02 STOOL *ABN* /2018 [facility] (05/02/18 8:43 AM) [facility] URINE AND UA Turbidity Clear Clear 05/02 STOOL (05/02/18 8:43 AM) /2018 [facility] URINE AND UA Color Yellow Yellow 05/02 STOOL *NA* /2018 [facility] (05/02/18 8:43 AM) [facility] URINE AND UA Mucus Few /LPF None Seen 05/02 STOOL /LPF /2018 [facility] URINE AND UA pH 7.0 5.0 - 8.0 05/02 STOOL /2018 [facility] URINE AND UA Ketones Negative Negative 05/02 STOOL *NA* /2018 [facility] (05/02/18 8:43 AM) [facility] URINE AND UA Spec Grav 1.010 <=1.030 05/02 STOOL /2018 [facility] URINE AND UA Sq Epi Occasional Few /LPF 05/02 STOOL /LPF /2018 [facility] URINE AND UA RBC 94 0 - 2 05/02 STOOL [facility] URINE AND UA WBC 18 0 - 5 05/02 STOOL [facility] Culture: No Growth 05/02 Urine [facility] CHEM PANEL POC BUN 18 7 - 22 05/01 [facility] CHEM PANEL POC 1.1 0.5 - 1.4 05/01 Creatinine /2018 [facility] CHEM PANEL POC Carbon 24 24 - 32 05/01 Dioxide [facility] CHEM PANEL eGFR 67 05/01 Result Comment: [facility] eGFR is City calculated using the CKD-EPI formula. In most young, healthy individuals the eGFR will be >90 mL/min/1.73m2 . The eGFR declines with age. An eGFR of 60-89 may be normal in some populations, particularly the elderly, for whom the CKD-EPI formula has not been extensively validated. Use of the eGFR is not recommended in the following populations:< br/>
Scarlett viduals with unstable creatinine concentration s, including patients and those with serious co-morbid conditions.<b r/>
Patie nts with extremes in muscle mass or diet.

The data above are obtained from the National Kidney Disease Education Program (NKDEP) which additionally recommends that when the eGFR is used in patients with extremes of body mass index for purposes of drug dosing, the eGFR should be multiplied by the estimated BMI. CHEM PANEL POC Sodium 141 135 - 145 05/01 [facility] CHEM PANEL POC Chloride 104 95 - 109 05/01 [facility] CHEM PANEL POC 3.7 3.5 - 5.1 05/01 Potassium [facility] CHEM PANEL POC AGAP 18.0 10.0 - 05/01 MH 20.0 [facility] CHEM PANEL POC 13.6 14.0 - 05/01 Hemoglobin 18.0 [facility] CHEM PANEL POC 40.0 42.0 - 05/01 Hematocrit 54.0 [facility] CHEM PANEL POC Ion Ca 1.13 1.05 - 05/01 1.25 [facility] CHEM PANEL POC Glucose 104 70 - 99 05/01 [facility] CARDIAC Troponin-I 0.02 0.00 - 05/01 ENZYMES 0.40 [facility] CARDIAC Total CK 99 12 - 191 05/01 [facility] CHEM PANEL Calcium Lvl 9.1 8.5 - 10.5 05/01 [facility] CHEM PANEL CO2 26 24 - 32 05/01 [facility] CHEM PANEL BUN 19 7 - 22 05/01 [facility] CHEM PANEL Glucose Lvl 100 70 - 99 05/01 [facility] CHEM PANEL eGFR 64 05/01 Result Comment: [facility] eGFR is City calculated using the CKD-EPI formula. In most young, healthy individuals the eGFR will be >90 mL/min/1.73m2 . The eGFR declines with age. An eGFR of 60-89 may be normal in some populations, particularly the elderly, for whom the CKD-EPI formula has not been extensively validated. Use of the eGFR is not recommended in the following populations:< br/>
Scarlett viduals with unstable creatinine concentration s, including patients and those with serious co-morbid conditions.<b r/>
Patie nts with extremes in muscle mass or diet.

The data above are obtained from the National Kidney Disease Education Program (NKDEP) which additionally recommends that when the eGFR is used in patients with extremes of body mass index for purposes of drug dosing, the eGFR should be multiplied by the estimated BMI. CHEM PANEL Creatinine 1.14 0.50 - 05/01 MH Lvl 1.40 [facility] CHEM PANEL Sodium Lvl 139 135 - 145 05/01 [facility] CHEM PANEL Potassium 3.7 3.5 - 5.1 05/01 Lvl /2018 [facility] CHEM PANEL Chloride Lvl 107 95 - 109 05/01 [facility] CHEM PANEL AGAP 9.7 10.0 - 05/01 MH 20.0 [facility] HEMATOLOGY PTT 28.2 22.9 - 05/01 MH 35.8 /2018 [facility] HEMATOLOGY INR 1.01 0.85 - 05/01 MH 1.17 [facility] HEMATOLOGY PT 13.1 12.0 - 05/01 MH 14.7 [facility] HEMATOLOGY MPV 10.0 7.4 - 10.4 05/01 [facility] HEMATOLOGY Platelet 187 133 - 450 05/01 [facility] HEMATOLOGY RBC 4.45 4.70 - 05/01 MH 6.10 [facility] HEMATOLOGY WBC 7.8 3.7 - 10.4 05/01 /2018 [facility] HEMATOLOGY MCH 31.4 27.0 - 05/01 MH 31.0 [facility] HEMATOLOGY MCV 92.8 80.0 - 05/01 MH 94.0 [facility] HEMATOLOGY Hgb 14.0 14.0 - 05/01 MH 18.0 /2018 [facility] HEMATOLOGY Hct 41.3 42.0 - 05/01 MH 54.0 [facility] HEMATOLOGY RDW 13.3 11.5 - 05/01 MH 14.5 [facility] HEMATOLOGY MCHC 33.9 32.0 - 05/01 MH 36.0 [facility] HEMATOLOGY Monocytes # 0.4 0.0 - 0.8 05/01 [facility] HEMATOLOGY Neutrophils 6.4 1.5 - 8.1 05/01 # /2018 [facility] HEMATOLOGY Lymphocytes 0.7 1.0 - 5.5 05/01 # /2018 [facility] HEMATOLOGY Basophils 1.1 0.0 - 1.0 05/01 [facility] HEMATOLOGY Basophils # 0.1 0.0 - 0.2 05/01 /2018 [facility] HEMATOLOGY Eosinophils 0.1 0.0 - 0.5 05/01 # /2018 [facility] HEMATOLOGY Eosinophils 1.4 0.0 - 4.0 05/01 /2018 [facility] HEMATOLOGY Lymphocytes 9.2 20.0 - 05/01 MH 40.0 [facility] HEMATOLOGY Monocytes 5.3 2.0 - 12.0 05/01 [facility] HEMATOLOGY Segs 83.0 45.0 - 05/01 75.0 [facility] LIPIDS CHD Risk 3.66 4.00 - 05/01 MH 7.30 [facility] LIPIDS Chol 194 <=199 05/01 mg/dL [facility] LIPIDS LDL 117 <=99 mg/dL 05/01 MH (Calculated) [facility] LIPIDS VLDL 24 05/01 [facility] LIPIDS HDL 53 >=61 mg/dL 05/01 [facility] LIPIDS Trig 118 <=149 05/01 mg/dL [facility] SPECIAL Hgb A1C 5.5 <=5.6 % 05/01 CHEMISTRY /2018 [facility] CARDIAC Troponin-I 0.07 0.00 - 02/14 MH ENZYMES 0.40 [facility] CHEM PANEL Calcium Lvl 8.4 8.5 - 10.5 02/14 [facility] CHEM PANEL eGFR 87 02/14 Result Comment: [facility] eGFR is City calculated using the CKD-EPI formula. In most young, healthy individuals the eGFR will be >90 mL/min/1.73m2 . The eGFR declines with age. An eGFR of 60-89 may be normal in some populations, particularly the elderly, for whom the CKD-EPI formula has not been extensively validated. Use of the eGFR is not recommended in the following populations:< br/>
Scarlett viduals with unstable creatinine concentration s, including patients and those with serious co-morbid conditions.<b r/>
Patie nts with extremes in muscle mass or diet.

The data above are obtained from the National Kidney Disease Education Program (NKDEP) which additionally recommends that when the eGFR is used in patients with extremes of body mass index for purposes of drug dosing, the eGFR should be multiplied by the estimated BMI. CHEM PANEL Creatinine 0.84 0.50 - 02/14 Lvl 1.40 [facility] CHEM PANEL AGAP 15.2 10.0 - 02/14 MH 20.0 [facility] CHEM PANEL BUN 16 7 - 22 02/14 [facility] CHEM PANEL CO2 26 24 - 32 02/14 [facility] CHEM PANEL Glucose Lvl 112 70 - 99 02/14 [facility] CHEM PANEL Chloride Lvl 105 95 - 109 02/14 [facility] CHEM PANEL Sodium Lvl 143 135 - 145 02/14 [facility] CHEM PANEL Potassium 3.2 3.5 - 5.1 02/14 Lvl /2018 [facility] CARDIAC Troponin-I 0.07 0.00 - 02/14 ENZYMES 0.40 [facility] HEMATOLOGY PTT 31.9 22.9 - 02/13 MH 35.8 /2018 [facility] HEMATOLOGY INR 1.02 0.85 - 02/13 MH 1.17 [facility] HEMATOLOGY PT 13.2 12.0 - 02/13 MH 14.7 /2018 [facility] CARDIAC Total CK 74 12 - 191 02/13 ENZYMES /2018 [facility] CARDIAC Troponin-I 0.06 0.00 - 02/13 ENZYMES 0.40 [facility] CARDIAC BNP 307 <=100 02/13 ENZYMES pg/mL [facility] CHEM PANEL BUN 16 7 - 22 02/13 [facility] CHEM PANEL Albumin Lvl 3.3 3.5 - 5.0 02/13 [facility] CHEM PANEL Chloride Lvl 104 95 - 109 02/13 [facility] CHEM PANEL Potassium 3.7 3.5 - 5.1 02/13 Lvl /2018 [facility] CHEM PANEL Sodium Lvl 141 135 - 145 02/13 [facility] CHEM PANEL eGFR 76 02/13 [facility] Comment: [facility] eGFR is City calculated using the CKD-EPI formula. In most young, healthy individuals the eGFR will be >90 mL/min/1.73m2 . The eGFR declines with age. An eGFR of 60-89 may be normal in some populations, particularly the elderly, for whom the CKD-EPI formula has not been extensively validated. Use of the eGFR is not recommended in the following populations:< br/>
Scarlett viduals with unstable creatinine concentration s, including patients and those with serious co-morbid conditions.<b r/>
Patie nts with extremes in muscle mass or diet.

The data above are obtained from the National Kidney Disease Education Program (NKDEP) which additionally recommends that when the eGFR is used in patients with extremes of body mass index for purposes of drug dosing, the eGFR should be multiplied by the estimated BMI. CHEM PANEL Creatinine 0.98 0.50 - 02/13 Lvl 1.40 [facility] CHEM PANEL ALT 64 0 - 65 02/13 [facility] CHEM PANEL CO2 27 24 - 32 02/13 [facility] CHEM PANEL Glucose Lvl 109 70 - 99 02/13 [facility] CHEM PANEL Calcium Lvl 8.6 8.5 - 10.5 02/13 [facility] CHEM PANEL Bili Total 1.7 0.2 - 1.3 02/13 [facility] CHEM PANEL Total 7.1 6.4 - 8.4 02/13 [facility] CHEM PANEL Alk Phos 80 39 - 136 02/13 [facility] CHEM PANEL AST 23 0 - 37 02/13 [facility] CHEM PANEL B/C Ratio 16 6 - 25 02/13 [facility] CHEM PANEL AGAP 13.7 10.0 - 02/13 MH 20.0 /2018 [facility] CHEM PANEL A/G Ratio 0.9 0.7 - 1.6 02/13 [facility] CHEM PANEL Globulin 3.8 2.7 - 4.2 02/13 [facility] HEMATOLOGY Platelet 134 133 - 450 02/13 [facility] HEMATOLOGY MPV 12.0 7.4 - 10.4 02/13 [facility] HEMATOLOGY RDW 12.6 11.5 - 02/13 MH 14.5 /2018 [facility] HEMATOLOGY MCV 93.0 80.0 - 02/13 MH 94.0 /2018 [facility] HEMATOLOGY MCH 32.0 27.0 - 02/13 MH 31.0 [facility] HEMATOLOGY MCHC 34.4 32.0 - 02/13 MH 36.0 [facility] HEMATOLOGY Hgb 14.3 14.0 - 02/13 MH 18.0 [facility] HEMATOLOGY Hct 41.7 42.0 - 02/13 MH 54.0 [facility] HEMATOLOGY WBC 8.1 3.7 - 10.4 02/13 [facility] HEMATOLOGY RBC 4.49 4.70 - 02/13 MH 6.10 [facility] HEMATOLOGY Basophils # 0.1 0.0 - 0.2 02/13 [facility] HEMATOLOGY Eosinophils 1.7 0.0 - 4.0 02/13 [facility] HEMATOLOGY Basophils 1.0 0.0 - 1.0 02/13 [facility] HEMATOLOGY Giant Plt Moderate None Seen 02/13 *ABN* /2018 [facility] (02/13/18 3:44 PM) [facility] HEMATOLOGY Neutrophils 6.1 1.5 - 8.1 02/13 MH # /2018 [facility] HEMATOLOGY Eosinophils 0.1 0.0 - 0.5 02/13 MH # /2018 [facility] HEMATOLOGY Lymphocytes 1.2 1.0 - 5.5 02/13 # [facility] HEMATOLOGY Monocytes # 0.5 0.0 - 0.8 02/13 [facility] HEMATOLOGY Lymphocytes 15.1 20.0 - 02/13 MH 40.0 [facility] HEMATOLOGY Monocytes 6.5 2.0 - 12.0 02/13 [facility] HEMATOLOGY Segs 75.7 45.0 - 02/13 MH 75.0 [facility] LIPIDS VLDL 18 02/13 [facility] LIPIDS CHD Risk 3.20 4.00 - 02/13 MH 7.30 [facility] LIPIDS LDL 94 <=99 mg/dL 02/13 (Calculated) [facility] LIPIDS HDL 51 >=61 mg/dL 02/13 [facility] LIPIDS Chol 163 <=199 02/13 mg/dL [facility] LIPIDS Trig 92 <=149 02/13 mg/dL [facility] URINE AND UA Hyal Cast 3 0 - 2 02/13 STOOL [facility] URINE AND UA Mucus Few /LPF None Seen 02/13 STOOL /LPF /2018 [facility] URINE AND UA 2.0 0.1 - 1.0 02/13 Result STOOL Urobilinogen /2018 Comment: [facility] Urobilinogen [facility] performed on the Clinitek analyzer. URINE AND UA Nitrite Negative Negative 02/13 STOOL (02/13/18 3:44 PM) [facility] URINE AND UA Blood Negative Negative 02/13 STOOL (02/13/18 3:44 PM) [facility] URINE AND UA RBC 3 0 - 2 02/13 STOOL [facility] URINE AND UA Bacteria Occasional None Seen 02/13 STOOL /HPF /HPF [facility] URINE AND UA WBC 3 0 - 5 02/13 STOOL [facility] URINE AND UA Ketones Trace Negative 02/13 STOOL *ABN* /2018 [facility] (02/13/18 3:44 PM) [facility] URINE AND UA Sq Epi None Seen Few 02/13 STOOL (02/13/18 3:44 PM) [facility] URINE AND UA Leuk Est Negative Negative 02/13 STOOL (02/13/18 3:44 PM) [facility] URINE AND UA Glucose Negative Negative 02/13 STOOL *NA* /2018 [facility] (02/13/18 3:44 PM) [facility] URINE AND UA Bili Negative Negative 02/13 STOOL *NA* [facility] (02/13/18 3:44 PM) [facility] URINE AND UA pH 5.0 5.0 - 8.0 02/13 STOOL [facility] URINE AND UA Spec Grav 1.024 <=1.030 02/13 STOOL [facility] URINE AND UA Turbidity Clear Clear 02/13 STOOL (02/13/18 3:44 PM) [facility] URINE AND UA Protein 30 mg/dL Negative 02/13 STOOL mg/dL /2018 [facility] URINE AND UA Color Anuradha 02/13 STOOL /2018 [facility] Pathology Reports No Data Provided for This Section Diagnostic Reports Report Value Date Source Brain wo contrast CT PATIENT NAME: YAAKOV ESTRADA 05/02/2018 [facility] : 1945; Age: 72 years y/o Male MR: [id number] STUDY: Brain wo contrast CT 05/02/2018 9:32 CDT ORDERING PHYSICIAN: Kishore Denise MD CLINICAL INDICATION: - R MCA CVA yesterday; COMPARISON: 05/01/[address], CTA, and angiogram TECHNIQUE: Noncontrast images of the brain are obtained from the skull base to the vertex. Axial, sagittal, and coronal images are interpreted. DLP: 767 mGy -cm This exam was performed according to our departmental dose-optimization protocol, which includes automated exposure control, adjustment of the mA and/ or kV according to patient size and/or use of iterative reconstruction technique. FINDINGS: BRAIN PARENCHYMA: There is no evidence of cerebral edema, mass, mass effect, hemorrhage, or recent cortical infarct. The patel-white distinction is maintained. There is stable generalized cortical and de ep white matter volume loss. Chronic small vessel ischemic changes are present. There are calcified atherosclerotic changes. There is interval placement of a stent in the right middle cerebral artery. . CEREBELLOPONTINE REGIONS AND SKULL BASE: The cerebellopontine angles appear unremarkable. No skull base abnormality is seen. VENTRICLES/SULCI/CISTERNS: The ventricles are normal in size and configuration. The basal cisterns are patent. ORBITS, VISUALIZED PARANASAL SINUSES AND MASTOIDS: Paranasal sinuses are clear. The mastoid air cells are clear. The calcified lesion in the right posterior globe is stable. There is a mucous retention cyst or polyp in the right frontoethmoidal recess. SKULL/CALVARIUM: There is no skull fracture or focal lesion. IMPRESSION: 1. No evidence of intracranial hemorrhage or large volume ischemic change in the right MCA distribution 2. Interval placement of right MCA stent 3. Stable generalized volume loss and chronic microvascular ischemia Angiogram Cerebral EMERGENT CEREBRAL REVASCULARIZATION 05/01/2018 [facility] Artery Bilat (VR) INDICATION: Acute right cerebral ischemia PROCEDURE AND FINDINGS: Under emergent circumstances this patient was brought to the angiography suite. General endotracheal anesthesia was induced and maintained by the anesthesiology service. His groins were prepped and draped in usual sterile fashion. Using a micropuncture system, the right common femoral artery was percutaneously accessed with a micropuncture system. Contrast injection demonstrated wide patency of the iliofemoral vessels and good pl acement of the femoral access site. A 9-Gambian sheath was placed. A 9-Gambian Concentric balloon guide catheter was introduced over a Covarity 2 catheter selecting the right common carotid artery. Angiograms were performed via the inner dilator demonstrating wide patenc y of this right common carotid artery and its cervical bifurcation. The cervical segments of its internal and external divisions were similarly normal. The system was advanced over a guiding wire positioning the tip of the balloon guide catheter just beyond the carotid bulb. The inner elements were removed. Angiograms through the guide catheter demonst rated wide patency of this internal carotid artery through its intracranial terminus. There was free runoff through the right anterior cerebral artery. However, the right middle cerebral artery demonstr ated incomplete occlusion of the middle cerebral artery at its origin. The CTA and show complete occlusion in this region. It filling defect was seen across the first 5 to 7 mm of this vessel. The lumen then immediately return to a more normal caliber and no other area of luminal compromise was seen. This partial occlusion resulted in limited distal flow within the MCA branches. This was evidenced by the distal MCA branches filling in retrograde fashion across the TARYN watershed. This retrograde filling reaching at least the M4 level. A prowler plus catheter was introduced over a guiding wire and advanced across the diseased M1 segment. Hand injections of contrast through the microcatheter demonstrated good runoff. A 23 mm Embotrap d evice was deployed and after a 3 minute dwell time a retrieval cycle was made. A small amount of thrombus was recovered. Control angiograms at 14:46 demonstrated continued significant luminal compromise with some improvement in distal flow. Repeat studies done 9 minutes later showed recurrent reduction in antegrade distal flow in the right MCA territory. The Prowler plus catheter was reintroduced across the diseased segment and the Embotrap device was again deployed. After a 3 minute dwell time a retrieval cycle was made. No solid material was recovered . Control angiograms done at 15:12 demonstrated reduced luminal compromise at the M1 origin with normal distal flow. However, serial repeat angiograms done at 15:24 demonstrated recurrent flow compromise through the MCA territory. Due to the recurrent occlusive phenomena, it was decided to proceed with angioplasty and stenting of the M1 lesion. A 5-Gambian Alyse catheter was introduced via the guide catheter and angiograms were o btained with its tip in the supraclinoid carotid artery. These studies demonstrated further narrowing at the M1 lesion with limited antegrade flow to the M3 level. A 2.5 mm x 12 mm integrity balloon reji nted stent was deployed after a 7.36 mg IV Integrilin bolus was administered. Control angiograms performed at 16:20 demonstrated wide recanalization across the M1 segment with improved filling of the le nticulostriate vessels and fully normalized distal MCA flow. Exit angiograms over the cervical internal carotid artery demonstrated continued wide patency of this vessel with no endoluminal filling defects. The catheters and sheath were removed and replaced with an Angio-Seal device. It was deployed at the arteriotomy, affecting hemostasis without difficulty. The patient was extubated and sent to the [facility] for further care. There were no complications. IMPRESSION: Baseline angiographic studies demonstrated the focal occlusion seen at the right MCA origin on prior CTA to have marginally recanalized. Despite the recanalization there was limited distal flow with t he distal MCA territory being fed in retrograde fashion across leptomeningeal collateral supply from the TARYN territory. There was no significant disease affecting the cervical carotid vessels. Initial mechanical thrombectomy recovered a small amount of thrombus resulting in some improvement in distal flow with continued compromise of the lumen at the right MCA origin. Recurrent luminal compro mise and reduction in distal flow occurred. A 2nd pass was made with the stentriever system but no solid material was recovered. Nonetheless, this resulted in some improved distal flow. Over time the sindi manny compromise recurred with significant reduction in distal flow. It was decided to perform stent angioplasty and a 2.5 x 12 mm balloon mounted stent was deployed resulting in full luminal recovery at the M1 lesion with normal distal flow. Brain/Neck CTA Brain/Neck CTA 05/01/2018 12:53 CDT 05/01/2018 [facility] Clinical: - Left sided weakness Comparison: 05/01/2018 CT exam. Technique: Sequential trans-axial images of the head and neck were obtained with a multi-detector helical CT after iodinated contrast administration. Coronal and sagittal MIP and computer-generated 3-D MIP reconstructions were performed. The DLP is 1126 mGy-cm. This exam was performed according to our department dose optimization protocol, which includes automated exposure control, adjustment of the m A and/or kV according to patient size and/or use of iterative reconstruction technique. Contrast: 100 cc Visipaque 320 IV contrast. CTA NECK: Intimal thickening is present. Right cervical carotids: Mild to moderate calcified plaques involve the right common carotid artery and right internal carotid artery bulb, without significant stenosis Left cervical carotids: Large calcified plaque is present in the medial margin of the left distal common carotid artery and left internal carotid artery ostium, reducing the luminal caliber to 2.7 mm, c orresponding to approximately 50% stenosis. The left distal cervical internal carotid artery is tortuous. Cervical vertebrals: Patent cervical vertebral arteries. The right vertebral artery is dominant. The left vertebral artery arises directly from the aortic arch. Neck non-vascular tissues: Significant multilevel cervical spine degenerative changes. 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 Anterior circulation: Moderate left internal carotid artery supraclinoid segment due to calcified plaque. Short segment occlusion of the right proximal M1 segment is present. Reconstitution of the right mid to distal M1 segment is seen, with reduced inflow to the right M2 segments with small caliber. Moderate stenosis of left distal M1 segment. The left M2 segments appear patent. Mild stenoses of bilateral A2 segments. Posterior circulation: Severe stenoses of left V4 segment. Patent right V4 segment. Moderate stenosis of proximal basilar artery. Bilateral stenoses of bilateral P2 and P3 segments. origin of the left [employer] is present. There is no aneurysm or AVM seen. The contrast-enhanced images of the head show no abnormal contrast enhancement. The major dural venous sinuses are patent. IMPRESSION: 1. Short segment occlusion the right proximal M1 segment with distal reconstitution. 2. Moderate to severe stenoses of left internal carotid artery supraclinoid segment, left M1 segment, left V4 segment, bilateral P2 and P3 segments. 3. Approximately 50% stenosis of left cervical internal carotid artery ostium. 4. 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 Note: Vessel stenosis assessment is made utlizing NASCET criteria. Chest 1view DX CLINICAL HISTORY: - CVA 05/01/2018 [facility] AGE: 72 years GENDER: Male TECHNIQUE: Single AP, portable chest radiograph, 1 view. COMPARISON: Chest radiograph 02/13/2018. CT chest 02/13/2018. FINDINGS: The cardiomediastinal silhouette demonstrates mild cardiomegaly.. Right perihilar fullness, decreased since the previous exam. No pleural effusions. No pneumothorax. No significant osseous abnormalities are identified. IMPRESSION: Right perihilar airspace opacity, decreased since the prior exam. Brain Stroke wo Brain Stroke wo contrast CT 05/01/2018 12:42 CDT 05/01/2018 [facility] contrast CT INDICATION: - lf facial droop, slurred speech, lf UE weakness COMPARISON: None. TECHNIQUE: Routine axial images of the brain were obtained with coronal and sagittal reformats. The DLP is 645 mGy*cm. This exam was performed according to our departmental dose-optimization protocol, which includes automated exposure control, adjustment of the mA and/or kV according to patient size and/or use of iterative reconstruction technique. IV contrast: None. FINDINGS: BRAIN: Moderate supratentorial white matter low attenuation foci are seen, most likely due to microvascular disease. Left lentiform nucleus chronic lacunar infarcts are present. Mild cerebral atrophy is seen. SKULL: No skull abnormality is seen. VENTRICLES: The ventricles are normal in size and configuration. ORBITS, VISUALIZED PARANASAL SINUSES AND MASTOIDS: Right frontal sinusitis with polypoid mucosal disease. The mastoid air cells are clear. No orbital pathology is seen. ASPECTS: 10 Laterality: none Caudate: normal Internal capsule: normal Lenticular: normal Insula: normal M1: normal M2: normal M3: normal M4: normal M5: normal M6: normal IMPRESSION: 1. No sign of acute cortical infarct or parenchymal hemorrhage. 2. Moderate chronic microvascular ischemia. 3. Right frontal sinus polypoid mucosal disease. ASPECTS score as above. Telephone call to discuss results was placed to Dr. Ayon on 05/01/2018 13: 03 CDT. Chest wo contrast CT EXAMINATION: CT OF THE CHEST WITHOUT CONTRAST 2018 [facility] HISTORY: Abnormal chest radiograph; chest pain and shortness of breath TECHNIQUE: Multiple contiguous transaxial CT images of the chest are obtained. Coronal and sagittal reformatted images are performed. This exam was performed according to our departmental dose-optimizat ion program which includes automated exposure control, adjustment of the mA and/or kV according to patient size and/or use of iterative reconstruction technique. IV Contrast: None. DLP: 222 mGy-cm COMPARISON: Chest radiograph dated earlier same day. FINDINGS: Lower Neck: The visible portions of the lower neck and thyroid are unremarkable. Heart and Great Vessels: The heart size is at the upper limits of normal without pericardial effusion. There are atherosclerotic calcifications of the coronary arteries and thoracic aorta. The thoracic aorta is normal in size without aneurysmal dilatation. The left vertebral artery arises directly from the aortic arch, a normal variant. Lymph Nodes: There is no supraclavicular, axillary, mediastinal, or hilar lymphadenopathy. Lungs and Pleura: Focal rounded area of consolidation within the superior segment of the right lower lobe corresponding with the opacity overlying the right hilum on recent chest radiograph. A smaller f ocal rounded area of consolidation is noted within the medial aspect of the left lower lobe and there are few patchy nodular areas of consolidation within the right upper lobe and bilateral lower lobes. There is mild bilateral dependent atelectasis. There is a small right pleural effusion. There is no left pleural effusion. There is no pneumothorax. Upper Abdomen: Unremarkable. Osseous Structures: There is multilevel listhesis and degenerative disc disease of the spine. IMPRESSION: 1. Multiple scattered areas of consolidation within the lungs as described above, most severe within the superior segment of the right lower lobe corresponding with the opacity overlying the right hilum on recent chest radiograph. These findings are nonspecific, but suspicious for multifocal pneumonia. Chest radiograph in 6-8 weeks following treatment is recommended to document complete interval resolution. 2. Small right pleural effusion. 3. Multilevel listhesis and degenerative disc disease of the spine. 4. Atherosclerotic calcifications of the coronary arteries and thoracic aorta. 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 ORDERING PHYSICIAN: Fransisco Marcus CLINICAL INDICATION: - chest pain; TECHNIQUE: PA and lateral views of chest COMPARISON: Unavailable FINDINGS: The lungs are well inflated. There is opacity overlying the right hilum. There is slight blunting of the posterior costophrenic sulci. Heart size is prominent. The aorta is tortuous. Mediastin al contours are normal. There is no acute bony abnormality. IMPRESSION: Opacity overlying the right hilum may represent pneumonia, mass lesion, or lymphadenopathy. The patient does not show symptoms of infection, further assessment with CT chest is recommended. The patient does have signs of pneumonia, repeat chest x-ray approximately one month after appropriate treatment is recommended. Consultation Notes No Data Provided for This Section Discharge Summaries No Data Provided for This Section History and Physicals No Data Provided for This Section Vital Signs Vital Sign Value Date Comments Source Height 162.56 cm 05/27/2018 [facility] Weight 84.148 05/27/2018 [facility] BMI Calculated 31.84 05/27/2018 [facility] Systolic (mm Hg) 169 05/27/2018 [facility] Diastolic (mm Hg) 85 05/27/2018 [facility] Heart Rate 55 05/27/2018 [facility] Systolic (mm Hg) 154 05/03/2018 [facility] Diastolic (mm Hg) 88 05/03/2018 [facility] Respitory Rate 18 05/03/2018 [facility] Temperature Oral (F) 97.8 F 05/03/2018 [facility] Respitory Rate 20 05/03/2018 [facility] Systolic (mm Hg) 129 05/03/2018 [facility] Diastolic (mm Hg) 72 05/03/2018 [facility] Systolic (mm Hg) 142 05/03/2018 [facility] Diastolic (mm Hg) 80 05/03/2018 [facility] Respitory Rate 20 05/03/2018 [facility] Temperature Oral (F) 99.3 F 05/03/2018 [facility] Weight 81.81 05/02/2018 [facility] Height 165.1 cm 05/01/2018 [facility] Weight 85.5 05/01/2018 [facility] BMI Calculated 31.37 05/01/2018 [facility] Heart Rate 88 05/01/2018 [facility] Temperature Oral (F) 98.0 F 05/01/2018 [facility] Heart Rate 71 05/01/2018 [facility] Heart Rate 95 05/01/2018 [facility] Height 165.1 cm 05/01/2018 [facility] BMI Calculated 30.02 05/01/2018 [facility] BMI Calculated 31.02 03/13/2018 [facility] Weight 84.545 03/13/2018 [facility] Height 165.1 cm 03/13/2018 [facility] Systolic (mm Hg) 0 02/28/2018 [facility] Weight 190 02/28/2018 [facility] Height 167.64 cm 02/26/2018 [facility] BMI Calculated 29.92 02/26/2018 [facility] Weight 84.091 02/26/2018 [facility] Systolic (mm Hg) 150 02/26/2018 [facility] Diastolic (mm Hg) 83 02/26/2018 [facility] Heart Rate 71 02/26/2018 [facility] Temperature Oral (F) 97.6 F 02/26/2018 [facility] Respitory Rate 16 02/26/2018 [facility] Systolic (mm Hg) 151 02/14/2018 [facility] Diastolic (mm Hg) 78 02/14/2018 [facility] Heart Rate 82 02/14/2018 [facility] Temperature Oral (F) 97.7 F 02/14/2018 [facility] Respitory Rate 16 02/14/2018 [facility] Respitory Rate 16 02/14/2018 [facility] Systolic (mm Hg) 164 02/14/2018 [facility] Diastolic (mm Hg) 112 02/14/2018 [facility] Temperature Oral (F) 97.6 F 02/14/2018 [facility] Heart Rate 94 02/14/2018 [facility] Respitory Rate 16 02/14/2018 [facility] Systolic (mm Hg) 159 02/14/2018 [facility] Diastolic (mm Hg) 90 02/14/2018 [facility] Heart Rate 67 02/14/2018 [facility] Temperature Oral (F) 97.8 F 02/14/2018 [facility] BMI Calculated 25.9 02/14/2018 [facility] Height 172.72 cm 02/14/2018 [facility] Weight 77.273 02/14/2018 [facility] BMI Calculated 25.9 02/14/2018 [facility] Weight 77.273 02/14/2018 [facility] Height 172.72 cm 02/14/2018 [facility] Weight 77.273 02/13/2018 [facility] Respitory Rate 16 02/13/2018 [facility] Heart Rate 101 02/13/2018 [facility] Systolic (mm Hg) 190 02/13/2018 [facility] Diastolic (mm Hg) 140 02/13/2018 [facility] BMI Calculated 30.57 02/13/2018 [facility] Weight 85.909 02/13/2018 [facility] Systolic (mm Hg) 183 02/13/2018 [facility] Diastolic (mm Hg) 130 02/13/2018 [facility] Height 167.64 cm 02/13/2018 [facility] Respitory Rate 16 02/13/2018 [facility] Heart Rate 106 02/13/2018 [facility] Temperature Oral (F) 98.3 F 02/13/2018 [facility] Encounters Location Location Encounter Encounter Reason Attending ADM DC Status Source Details Type Number For Provider Date Date Visit Outpatient [id number] GENE 02/13 [facility] 0 Ed [facility] Outpatient [id number] Gene 02/13 02/14 [facility] Primary 0 [facility] Observation [id number] 02/13 02/[address] [place] [address] [facility] Outpatient [id number] GENE 02/20 [facility] 1 [place] [facility] Ambulatory [id number] Gene 02/20 02/20 MH Primary Pre-Reg 1 Medical Care [facility] Outpatient [id number] GENE 02/26 [facility] 2 [place] [facility] Outpatient [id number] Gene 02/26 02/27 MH Primary 2 Medical Care Group [facility] Bedded [id number] Emily 03/14 03/[address] [facility] Outpatient [id number] GENE 04/09 [facility] 3 Ed [facility] Ambulatory [id number] Gene 04/09 04/09 MH Primary Pre-Reg 3 Medical Care [facility] Inpatient [id number] Perfecto 05/01 05/[address] [facility] MNA Phone [id number] 05/21 05/23 [facility] Neuro[facility] Message [facility] MNA Phone [id number] 05/23 05/25 [facility] Neuro[facility] Message [facility] Outpatient [id number] Dejon 05/27 [facility] 4 Guzman Jr Ed [facility] Outpatient [id number] Dejon 05/27 05/28 [facility] 4 Guzman Jr /2018 [facility] Outpatient [id number] Dejon 09/26 [facility] 5 Guzman Jr Ed [facility] Ambulatory [id number] Dejon 09/26 09/26 [facility] Pre-Reg 5 Guzman Jr Neuro [facility] Procedures Procedure Code Date Perfomer Comments Source Appendectomy [id number] Medical Group,[facility] her Neuro,[facility] Esophagogastroduodenoscopy [id number] Medical [facility] her Neuro,[facility] Transesophageal [id number] with possible Medical echocardiogram<sup>1</sup> cardioversion Group,[facility] her Neuro,[facility] Assessment and Plan Assessment and Plan Date Source Extracted from:Title: Clinical Document 05/03/2018 [facility] Author: Perfecto Ocasio MD Date: 05/03/18 Date of admission: 05/01/2018. Date of discharge: 05/03/2018. Discharge diagnoses: 1. Acute right MCA ischemic stroke. 2. Atrial fibrillation. Rate controlled. 3. Hypertension 4. Dyslipidemia 5. Hypokalemia 6. Hypophosphatemia. Consultants requested on the case: 1. Neurology: Dr. Denise. 2. Cardiology: Dr. Mitchell. 3. Neuro endovascular: Dr. Gracia [facility] course: Patient is a 72-year-old male with a history of proximal atrial fibrillation, hypertension, diastolic congestive heart failure who recently had cardioversion and was supposed to be on Eliquis however yeni caldera noncompliant presented to the hospital with complaints of acute left- sided weakness and slurring speech. Patient was then urgently evaluated in the ED and was suspected to have an acute CVA and ne urology consultation was requested. Initial CT of the brain did not show any acute infarct. Patient then emergently underwent angiography for right M1 thrombectomy after CT of the head and neck showed occlusion of the right proximal M1 segment. He had stenting of the right M1 MCA severe stenosis and was recommended to be continued on Integrilin infusion. Over the course of the next couple of days patient condition gradually improved. His Integrilin infusion was transitioned to Brilinta and aspirin. Cardiology consultation was also requested and gabriel gonzalez was seen by his primary plug making operator Dr. Mitchell who then further discussed with neuro endovascular Dr. Gracia and neurology Dr. Denise and plan to him to continue Brilinta and aspirin for the first 2 weeks after discharge at which time he will follow-up with cardiology/ neurology and transition to Eliquis and stop aspirin along with continuation with Plavix. Patient during the rest of the hospital s gillian he did not have any new or worsening complaints. His physical examination and vital signs on the day of discharge were within acceptable range. He was cleared by neurology and cardiology for discharge. Patient was evaluated by physical therapy and recommended only home health. This was arranged. Patient was also counseled extensively regarding the need for absolute compliance with all the medication s in light of the angioplasty with a stent done and also with his history of atrial fibrillation. Discharge instructions: 1. Patient to be discharged home with home health. 2. Patient to follow-up with Dr. Mitchell in 2 weeks. 3. Patient to follow-up with neurology Dr. Guzman in 1 week. 4. Patient to follow-up with his PCP in 2 days. Diet: Heart healthy diet. Medication: As per medical reconciliation form. Activity: As tolerated with no strenuous activity. Total time spent on the day of discharge: More than 30 minutes Extracted from:Title: Clinical Document Author: Kishore Denise MD Date: 05/03/18 NEUROLOGY and CRITICAL CARE MEDICINE [facility] Consultation / Progress Note NEUROLOGICAL INTENSIVE CARE Assessment / Recommendations / Plan Acute right MCA ischemic stroke Right M1 MCA severe stenosis versus occlusion (demonstrated on CTA) Initially considered cardioembolic secondary to atrial fibrillation and noncompliance with anticoagulation. Cerebral arteriography demonstrated moderately severe intrinsic proximal right MCA atherosclerosis Right MCA stent placed. Goal SBP < [address] Head performed, yielding no evolving stroke, no hemorrhage. Antithrombotic/anticoagulation regime and plan worked out with Dr. Mitchell ( cardiology) and Samia (neuro-endovascular) (see Dr. Pelayo note) Discussed in detail with Dr. Mitchell this morning and yesterday evening Discussed in detail with patient's family, yesterday, and today. Therapy evaluations / recommendations PT Home with family care/supervision OT Home with family care/supervision ST Regular diet. No further speech intervention. Atrial fibrillation Noncompliant with Eliquis at home (family found Eliquis prescription from over a month ago, nearly full) Ultimately, will need to go back on Eliquis or other anticoagulation for primary stroke prevention. Restarting amiodarone 200 mg daily Hypertension Restarting home BP medications Metoprolol 50 mg twice daily Lisinopril 10 mg twice daily I am not currently restarting diuretics. Most recent LVEF 50-55%. BP now well controlled History of Present Illness [id number] - Right hand dominant Acute left weakness (face, arm, leg) PMH Hypertension. History of atrial fibrillation. Noncompliance with medication PSH Unknown FH Unknown SocH Unknown Home Meds Furosemide (Lasix) 20 mg daily Amiodarone 200 mg daily Lisinopril 10 mg twice daily Tamsulosin 0.4 mg daily Spironolactone 25 mg daily Metoprolol 50 mg twice daily Apixaban 5 mg twice daily (noncompliant) Adverse Rxns NKDA Subj No headache ROS Const No fever, chills, rigors. No weight changes. Neuro No diplopia, dysarthria, dysphagia. No headache. Eyes No pain, redness, photophobia. ENT No new hearing loss, ringing, pain. No sorethroat. Card No CP, palpitations, subj rapid heart rates. Resp No SOB, YANEZ, wheeze, cough. GI No nausea, vomiting, diahhrea, melena, blood WI. No new urgency, frequency, pain, or urine malodor. Vital Signs (last 24 hrs) Last Charted Temp Oral 97.8 DegF (MAY 03 12:00) Heart Rate Apical 63 bpm (MAY 03:) Resp Rate 18 BRMIN (MAY 03:) SBP H 154mmHg (MAY 03:) DBP 88 mmHg (MAY 03:) SpO2 98 % (MAY 03:) Exam Neuro Awake. Smiling. Demonstrates no lateralizing weakness. Visual castañeda intact bilaterally Appears to have made a full neurologic recovery. Lungs Clear bilaterally Heart Irregular rhythm Abd Soft. Nontender. Nondistended. Skin Warm. Dry. Evaluations CT Head (05/01/18) No sign of acute cortical infarct or parenchymal hemorrhage. Moderate chronic microvascular ischemia. Right frontal sinus polypoid mucosal disease. CTA Head/Neck (05/01/18) Short segment occlusion the right proximal M1 segment with distal reconstitution. Moderate to severe stenoses of left internal carotid artery supraclinoid segment, left M1 segment, left V4 segment, bilateral P2 and P3 segments. Approximately 50% stenosis of left cervical internal carotid artery ostium. 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 Cerebral arteriography - Dr. Gracia (05/01/18) Thrombectomy performed, but not much for thrombus was demonstrated. Rather, the tight right M1 stenosis was secondary to intrinsic atherosclerosis. A right proximal MCA stent was subsequently placed CT Head (05/02/18) Reviewed. Brain appears normal/unchanged. Labs Chol TG HDL LDL VLDL Chol/HDL TSH B12 ESR HgbA1c RPR HIV WBC 7.4 (MAY 03) 7.8 (MAY 01) Hgb L 12.5 (MAY 03) 14.0 (MAY 01) Hct L 37.3 (MAY 03) L 41.3 (MAY 01) Plt 160 (MAY 03) 187 (MAY 01) Na 143 (MAY 03) 139 (MAY 01) K L 3.4 (MAY 03) 3.7 (MAY 01) CO2 27 (MAY 03) 26 (MAY 01) Cl 109 (MAY 03) 107 (MAY 01) Cr 0.82 (MAY 03) 1.14 (MAY 01) BUN 11 (MAY 03) 19 (MAY 01) Glucose Random 99 (MAY 03) H 100 (MAY 01) Mg 1.9 (MAY 03) Phos L 2.4 (MAY 03) Ca L 8.3 (MAY 03) 9.1 (MAY 01) PT 13.1 (MAY 01) INR 1.01 (MAY 01) PTT 28.2 (MAY 01) Troponin 0.02 (MAY 01) Total CK 99 (MAY 01) Urine Urinalysis : UDS : Micro None Meds Scheduled Meds (8): 05/03/18 9:00 AMIODarone 200 mg PO Daily 05/03/18 9:00 aspirin 325 mg PO Daily 05/02/18 21:00 atorvastatin 40 mg PO Bedtime 05/03/18 11:00 cefuroxime (cefuroxime 250 mg oral tablet) 250 mg PO [id number] 05/04/18 9:00 lisinopril 40 mg PO Daily 05/02/18 21:00 metoprolol (metoprolol tartrate) 50 mg PO Q12H 05/01/18 21:00 sodium chloride (Saline Flush 0.9%) 10 ml IVP Q12H 05/03/18 9:00 ticagrelor (Brilinta (ticagrelor)) 90 mg PO Q12H Unscheduled Meds: None PRN Meds (5): 05/01/18 14:30 Dextrose 50% in Water IV (Dextrose 50% Syringe) 12.5 gm IVP PRN 05/01/18 14:30 Dextrose 50% in Water IV (Dextrose 50% Syringe) 25 gm IVP PRN 05/01/18 14:30 glucagon 1 mg IM PRN 05/01/18 12:53 sodium chloride (Saline Flush 0.9%) 10 mL IVP PRN 05/01/18 16:42 sodium chloride (Saline Flush 0.9%) 10 ml IVP PRN One Time Meds (4): 05/03/18 10:06 (Completed) lisinopril 30 mg PO ONCE 05/02/18 23:47 (Completed) melatonin 3 mg PO ONCE 05/03/18 10:08 (Completed) potassium chloride (20 mEq oral tablet, extended release) 20 mEq PO ONCE 05/02/18 15:32 (Completed) ticagrelor (Brilinta (ticagrelor)) 180 mg PO ONCE Continuous Infusions (1): 05/01/18 18:20 niCARdipine 40 mg (niCARdipine 40 mg in NS 200 mL (Titrate.) IV 40 mg) 40 mg Titrate Nutrition Regular Lines Periph Velasquez Out DVT Prophylaxis SCDs Adv Dir Full Code (Nonspecified) Time 40 minutes Stroke Core Measures Thrombolysis for acute stroke Onset unknown. Thrombolytics not given. Thrombectomy for LVO Right MCA stent placed Stroke / ICH MPP Done Antithrombotic Aspirin Statin (LDL > 70) Atorvastatin Anticoagulation for Afib (discharge) Atrial fibrillation known. Eliquis to be restarted if no bleeding complications. NIH Stroke Scale (NIHSS) Based upon initial examination in the emergency room (05/01/18) 1a. LOC: 0-alert 1-drowsy 2-stupor 0 1b. Questions month and age: 0-both 1-one 2-neither 0 1c. Commands open/close eyes, tailor helper/release non-paretic hand: 0-both 1-one 2- neither 0 2. Best Gaze: 0-normal 1-partial 2-forced gaze 0 3. Visual Castañeda: 0-No visual loss. 1-Partial hemianopia 2-Complete 3- Bilateral 1 4. Facial Palsy; 0-none 1-minor 2-partial 3-complete 2 5. Motor RUE: 0-No drift 1-Drift 2-Some antigravity 3-No antigravity 4-No movement 6. Motor RLE: 0-No drift 1-Drift 2-Some antigravity 3-No antigravity 4-No movement 7. Motor LUE: 0-No drift 1-Drift 2-Some antigravity 3-No antigravity 4-No movement 2 8. Motor LLE: 0-No drift 1-Drift 2-Some antigravity 3-No antigravity 4-No movement 2 9. Limb Ataxia: 0 absent 1 - 1limb 2 - 2 limbs 10. Sensory: 0-normal 1-partial loss 2-dense loss 11. Best Language: 0-normal 1-mild/mod 2-severe 3-mute 12. Dysarthria: 0-normal 1-mild/mod 2-severe X-untestable 1 13. Extinction / Inattention (formerly Neglect): 0-none 1-partial 2- complete 1 TOTAL 9 Extracted from:Title: H&P Author: Butch Neil MD Date: 05/01/18 Impression and Plan Education and Follow-up: Discharge Planning: Plan to discharge ( To home ). Slurred speech with left-sided weakness due to concerns of acute CVA with noncompliance of medications Moderate to severe left internal carotid artery disease with lesions involving multiple segments including M1 Accelerated hypertension History of atrial fibrillation Admit to the neuro unit Telemetry monitoring Neuro iron piler consulted Pending decision for emergent neurosurgical intervention Will allow for permissive hypertension If systolic blood pressure greater than 200 will start on Cardene drip Neurochecks per protocol Will need further imaging including echocardiogram PT/OT/ST eval and treat Supportive care management Extracted from:Title: History and Physical 02/14/2018 [facility] Author: Ovidio Blancas MD Date: 02/13/18 A-fib(I48.91) New onset of unknown duration. Cardiology is been consulted. He has been started on anticoagulation including rate control medication. Will order the TSHas part of the workup. Could be secondary to his significant hypertension history but need to rule out any underlyingcoronary disease. Further recommendation per cardiology. Ordered: Admit/Condition, 02/13/18 19:03:00 TARIFF CLERK, Status: Out Patient with Observation Services, Telemetry Capable Location, Expected LOS: 1 Midnight, Ovidio Blancas MD, Admit Review/Approve Yes, A-fib | Benign hypertension Benign hypertension(I10) Patient will be started on antihypertensive and adjust according to vitals. Ordered: Admit/Condition, 02/13/18 19:03:00 TARIFF CLERK, Status: Out Patient with Observation Services, Telemetry Capable Location, Expected LOS: 1 Midnight, Ovidio Blancas MD, Admit MD Review/Approve Yes, A-fib | Benign hypertension Abnormal chest x-ray. Will order the CT of the chest for further evaluation of the opacity on the right hilum. I will start him on antibiotic for pneumonia Patient already on Eliquis Pending above. Above plan of care was discussed at length with the patient and the son who verbalized understanding and agrees with the treatment plan Addendum by Ovidio Blancas MD on 02/13/2018 20:35 TARIFF CLERK CHF. Patient is found to havenew onsetmild CHF of unknown duration and severity. We will follow up on the 2D echo. Patient is been started on diuretics. Patient also has hypertension crisis even though it is listed as benign hypertension and could be contributing to hisCHF. CT chest has been performed and it shows multifocal pneumonia and I will start him oncommunity acquired pneumonia protocolfor suspected gram-negative organism Plan of Care No Data Provided for This Section Social History Social History Date Source Social History TypeResponse 05/01/2018 [facility] Substance Abuse Use: None. Sexual Sexually active: No. Exercise Exercise duration: 0. Employment/School Status: Retired. Alcohol Never Smoking Status Former smoker; Exposure to Tobacco Smoke None; Cigarette Smoking Last 365 Days No; Reg Smoking Cessation Counseling No entered on: 05/27/18 Social History TypeResponse 05/01/2018 [facility] Alcohol Never Employment/School Status: Retired. Exercise Exercise duration: 0. Sexual Sexually active: No. Substance Abuse Use: None. Smoking Status Former smoker; Exposure to Tobacco Smoke None; Cigarette Smoking Last 365 Days No; Reg Smoking Cessation Counseling No entered on: 05/27/18 Social History TypeResponse 05/01/2018 [facility] Alcohol Never Employment/School Status: Retired. Exercise Exercise duration: 0. Sexual Sexually active: No. Substance Abuse Use: None. Smoking Status Former smoker; Exposure to Tobacco Smoke None; Cigarette Smoking Last 365 Days No; Reg Smoking Cessation Counseling No entered on: 05/27/18 Family History No Data Provided for This Section Advance Directives No Data Provided for This Section Functional Status No Data Provided for This Section
--- OUTSIDE RECORDS SUMMARY | 2018-10-25 11:01 | XMS REPORT | Summary of Care ---
:1945 Author Organization [facility] Address [address] [place] [id number]- Encounter HQ Omar(FIN) [id number] Date(s): 05/01/18 - 05/03/[address] [address]- Discharge Disposition: Home or Self Care Attending Physician: Perfecto Ocasio MD Admitting Physician: Perfecto Ocasio MD Vital Signs Most recent to oldest 1 2 3 [Reference Range]: Height 165.1 cm 165.1 cm (05/01/18 5:30 PM) (05/01/18 12:20 PM) Temperature Oral [96.4-99.1 97.8 DegF 99.3 DegF 98.0 DegF DegF] (05/03/18 12:00 PM) *HI* (05/01/18 12:49 PM) (05/02/18 8:00 PM) Blood Pressure [90-140/60-90 154/88 mmHg 129/72 mmHg 142/80 mmHg mmHg] *HI* (05/03/18 12:00 PM) *HI* (05/03/18 1:00 PM) (05/03/18 11:00 AM) Respiratory Rate [14-20 18 BRMIN 20 BRMIN 20 BRMIN BRMIN] (05/03/18 1:00 PM) (05/03/18 12:00 PM) (05/03/18 11:00 AM) Peripheral Pulse Rate 88 bpm 71 bpm 95 bpm [60-100 bpm] (05/01/18 1:20 PM) (05/01/18 12:49 PM) (05/01/18 12:20 PM) Weight 81.81 kg 81.818 kg 85.5 kg (05/02/18 3:07 AM) (05/02/18 3:07 AM) (05/01/18 5:30 PM) Body Mass Index 31.37 m2 30.02 m2 (05/01/18 5:30 PM) (05/01/18 12:20 PM) Problem List Condition Effective Dates Status Health Status Informant Simple obesity(Confirmed) Active Allergies, Adverse Reactions, Alerts Substance Reaction Severity Status NKFA Active NKDA Active Medications AMIODarone 200 mg, 1 tab, Route: PO, Drug form: TAB, Daily, Dosing Weight 81.81, kg, Start date: 05/03/18 9:00:00 CDT, Duration: 30 day, Stop date: 06/01/18 9:00:00 CDT Notes: (Same as: Cordarone) Start Date: 05/03/18 Stop Date: 05/03/18 Status: Discontinuedaspirin 325 mg, 1 tab, Route: PO, Drug form: ECTAB, Daily, Dosing Weight 81.81, kg, Start date: 05/03/18 9:00:00 CDT, Duration: 30 day, Stop date: 06/01/18 9:00:00 CDT Notes: (Do Not Crush) Do not crush or chew. Start Date: 05/03/18 Stop Date: 05/03/18 Status: Discontinuedaspirin 81 mg tablet, enteric coated 81 mg=1 tab, PO, Daily, # 30 tab, 3 Refill(s), Pharmacy: [id number] Start Date: 05/03/18 Stop Date: 08/31/18 Status: Orderedatorvastatin 40 mg, 1 tab, Route: PO, Drug form: TAB, Bedtime, Dosing Weight 81.81, kg, Start date: 05/02/18 21:00:00 CDT, Duration: 30 day, Stop date: 05/31/18 21:00: 00 CDT Notes: (Same as: Lipitor) Start Date: 05/02/18 Stop Date: 05/03/18 Status: Discontinuedatorvastatin 40 mg oral tablet 40 mg=1 tab, PO, Bedtime, # 30 tab, 0 Refill(s), Pharmacy: [facility] Start Date: 05/03/18 Status: OrderedBrilinta (ticagrelor) 90 mg, 1 tab, Route: PO, Drug form: TAB, Q12H, Dosing Weight 81.81, kg, Start date: 05/03/18 9:00:00CDT, Duration: 30 day, Stop date: 06/01/18 21:00:00 CDT Notes: (Same as: Brilinta) Start Date: 05/03/18 Stop Date: 05/03/18 Status: DiscontinuedBrilinta (ticagrelor) 180 mg, 3 tab, Route: PO, Drug form: TAB, ONCE, Dosing Weight 81.81, kg, Loading dose, Priority: NOW, Start date: 05/02/18 15:32:00 CDT, Stop date: 05/02 15:32:00 CDT Notes: (Same as: Brilinta) Start Date: 05/02/18 Stop Date: 05/02/18 Status: Completedcefuroxime 250 mg oral tablet 250 mg, 1 tab, Route: PO, Drug form: TAB, [id number], Dosing Weight 81.81, kg, Start date: 05/03/18 11:00:00 CDT, Duration: 5 day, Stop date: 05/07/18 23:00: 00 CDT Notes: (Do Not Crush) With food. (Same As: Ceftin) Start Date: 05/03/18 Stop Date: 05/03/18 Status: DiscontinuedDextrose 50% Syringe 25 gm, 50 mL, Route: IVP, Drug Form: INJ, Dosing Weight 81.818, kg, PRN, PRN Blood Glucose Results, Start date: 05/01/18 14:30:00 CDT, Duration: 30 day, Stop date: 05/31/18 14:29:00 CDT Start Date: 05/01/18 Stop Date: 05/03/18 Status: DiscontinuedDextrose 50% Syringe 12.5 gm, 25 mL, Route: IVP, Drug Form: INJ, Dosing Weight 81.818, kg, PRN, PRN Blood Glucose Results, Start date: 05/01/18 14:30:00 CDT, Duration: 30 day, Stop date: 05/31/18 14:29:00 CDT Start Date: 05/01/18 Stop Date: 05/03/18 Status: Discontinuedeptifibatide 7,363.62 microgram, Route: IVP, ONCE, Dosing Weight 81.818, kg, Start date: 15:55:00 CDT, Stop date: 05/01/18 15:55:00 CDT Start Date: 05/01/18 Stop Date: 05/01/18 Status: Completedeptifibatide 75 mg in 100 ml premix IV 75 mg 75 mg, 100 mL, Rate: 1 micrograms/kg/min, Dosing Weight 81.818, kg, Route: IV, Total Volume: 100, Start date: 05/01/18 15:55:00 CDT, Duration: 18 hr, Stop date : 05/02/18 9:54:00 CDT, Replace Every: 24 hr Notes: (Same as: Integrelin) Final conc=0.75 mg/mL - Premix Bottle Start Date: 05/01/18 Stop Date: 05/02/18 Status: Completedglucagon 1 mg, Route: IM, Drug form: PDR/INJ, PRN, Dosing Weight 81.818, kg, PRN Blood Glucose Results, Startdate: 05/01/18 14:30:00 CDT, Duration: 30 day, Stop date: 05/31/18 14:29:00 CDT Start Date: 05/01/18 Stop Date: 05/03/18 Status: Discontinuedhydrochlorothiazide-lisinopril 12.5 mg-20 mg oral tablet 1 tab, PO, QAM, # 30 tab, 0 Refill(s), Pharmacy: [id number] Start Date: 05/03/18 Stop Date: 06/02/18 Status: Orderedinfluenza virus vaccine, inactivated high-dose preservative-free intramuscular suspension 0.5 mL, Route: IM, Drug Form: SUSP, kg, ONCALL, Start date: 05/01/18 17:36:48 CDT, Stop date: 05/31/18 17:31:48 CDT Notes: (Same as: Fluzone High-Dose)For 65 years of age of older (0.5 ml IM) Shake well before use Start Date: 05/01/18 Stop Date: 05/03/18 Status: Canceledlisinopril 10 mg, 1 tab, Route: PO, Drug form: TAB, BID, Dosing Weight 81.81, kg, Start date: 05/02/18 17:00:00CDT, Duration: 30 day, Stop date: 06/01/18 9:00:00 CDT Notes: (Same as: Prinbrian Zestril) Start Date: 05/02/18 Stop Date: 05/03/18 Status: Discontinuedlisinopril 40 mg, 2 tab, Route: PO, Drug form: TAB, Daily, Dosing Weight 81.81, kg, Start date: 05/04/18 9:00:00 CDT, Duration: 30 day, Stop date: 06/02/18 9:00:00 CDT Notes: (Same as: Prinivserafin Zestril) Start Date: 05/04/18 Stop Date: 05/03/18 Status: Canceledlisinopril 30 mg, 3 tab, Route: PO, Drug form: TAB, ONCE, Dosing Weight 81.81, kg, Start date: 05/03/18 10:06:00 CDT, Stop date: 05/03/18 10:06:00 CDT Notes: (Same as: Prinivserafin Zestril) Start Date: 05/03/18 Stop Date: 05/03/18 Status: Completedmelatonin 3 mg, 1 tab, Route: PO, Drug form: TAB, ONCE, Dosing Weight 81.81, kg, Start date: 05/02/18 23:47:00CDT, Stop date: 05/02/18 23:47:00 CDT Notes: (Same as: Melatonin) Start Date: 05/02/18 Stop Date: 05/03/18 Status: Completedmetoprolol tartrate 50 mg, 1 tab, Route: PO, Drug form: TAB, Q12H, Dosing Weight 81.81, kg, Start date: 05/02/18 21:00:00 CDT, Duration: 30 day, Stop date: 06/01/18 9:00:00 CDT Notes: (Same as: Lopressor) Start Date: 05/02/18 Stop Date: 05/03/18 Status: DiscontinuedniCARdipine 40 mg in NS 200 mL (Titrate.) IV 40 mg 40 mg, 200 mL, Rate: Titrate, Start Dose: 5 mg/hr, Titration: 2.5 mg/hr every 15 minutes, Goal(s): SBP 100 -130, Max Dose: 15 mg/hr, Route: IV, Dosing Weight 85.5 kg, Total Volume: 200, Start date: 05/01/18 18:20:00 CDT, Duration: 30 day , Stop date: 0... Notes: Same as: CardeneConcentration: (0.2 mg /1 ml ) Start Date: 05/01/18 Stop Date: 05/03/18 Status: Discontinuedpneumococcal 13-valent vaccine 0.5 mL, Route: IM, Drug Form: INJ, ONCALL, Start date: 05/01/18 17:37:19 CDT, Stop date: 05/31/18 17:32:19 CDT Notes: Shake well prior to use (Same as: Prevnar 13) Start Date: 05/01/18 Stop Date: 05/03/18 Status: Canceledpotassium chloride 20 mEq oral tablet, extended release 20 mEq, 1 tab, Route: PO, Drug form: ERTAB, ONCE, Dosing Weight 81.81, kg, Start date: 05/03/18 10:08:00 CDT, Stop date: 05/03/18 10:08:00 CDT Notes: (Same as: K-Dur 20)"Do Not Crush" Give with food and full glass of waterFor patients unable to swallow tablet, dissolve in one half glass of water. Allow about 2 minutes for the tablets to disintegrate. Stir before giving to prepare slurry and administer.Please exclude Patients with feedingtube less than 14 [place] (Dobhoff, J-tube etc) and pediatric and patients. Start Date: 05/03/18 Stop Date: 05/03/18 Status: CompletedSaline Flush 0.9% 10 mL, Route: IVP, Drug Form: INJ, Dosing Weight 81.818, kg, PRN, PRN Line Flush , Start date: 05/01/18 12:53:00 CDT, Duration: 30 day, Stop date: 05/31/18 12:52 :00 CDT Notes: (Same as: BD Posiflush) Start Date: 05/01/18 Stop Date: 05/03/18 Status: DiscontinuedSaline Flush 0.9% 10 ml, Route: IVP, Drug Form: INJ, Dosing Weight 81.818, kg, Q12H, Start date: 05/01/18 21:00:00 CDT, Duration: 30 day, Stop date: 05/31/18 9:00:00 CDT Notes: (Same as: BD Posiflush) Start Date: 05/01/18 Stop Date: 05/03/18 Status: DiscontinuedSaline Flush 0.9% 10 ml, Route: IVP, Drug Form: INJ, Dosing Weight 81.818, kg, PRN, PRN Line Flush , Start date: 05/01/18 16:42:00 CDT, Duration: 30 day, Stop date: 05/31/18 16:41 :00 CDT Notes: (Same as: BD Posiflush) Start Date: 05/01/18 Stop Date: 05/03/18 Status: Discontinuedticagrelor 90 mg oral tablet 90 mg=1 tab, PO, Q12H, # 60 tab, 0 Refill(s), Pharmacy: [id number] Start Date: 05/03/18 Stop Date: 06/02/18 Status: OrderedZofran 4 mg, 2 mL, Route: IV, Drug form: INJ, ONCE, Dosing Weight 85.5, kg, Start date : 05/01/18 20:14:00 CDT, Stop date: 05/01/18 20:14:00 CDT Notes: (Same as: Zofran) MEDICATION WASTE Product Size: 4 mgProduct Wasted: ___ mg Start Date: 05/01/18 Stop Date: 05/02/18 Status: Completed Results ELECTROLYTES Most recent to oldest [Reference Range]: 1 2 3 Sodium Lvl [135-145 mEq/L] 143 mEq/L 139 mEq/L (05/03/18 5:36 AM) (05/01/18 12:51 PM) Potassium Lvl [3.5-5.1 mEq/L] 3.4 mEq/L 3.7 mEq/L *LOW* (05/01/18 12:51 PM) (05/03/18 5:36 AM) Chloride Lvl [95-109 mEq/L] 109 mEq/L 107 mEq/L (05/03/18 5:36 AM) (05/01/18 12:51 PM) CO2 [24-32 mEq/L] 27 mEq/L 26 mEq/L (05/03/18 5:36 AM) (05/01/18 12:51 PM) AGAP [10.0-20.0 mEq/L] 10.4 mEq/L 9.7 mEq/L (05/03/18 5:36 AM) *LOW* (05/01/18 12:51 PM) POC Sodium [135-145 mEq/L] 141 mEq/L (05/01/18 12:52 PM) POC Potassium [3.5-5.1 mEq/L] 3.7 mEq/L (05/01/18 12:52 PM) POC Chloride [95-109 mEq/L] 104 mEq/L (05/01/18 12:52 PM) POC Carbon Dioxide [24-32 mEq/dL] 24 mEq/dL (05/01/18 12:52 PM) POC AGAP [10.0-20.0 mEq/L] 18.0 mEq/L (05/01/18 12:52 PM) CHEM PANEL Most recent to oldest 1 2 3 [Reference Range]: Creatinine Lvl [0.50-1.40 0.82 mg/dL 1.14 mg/dL mg/dL] (05/03/18 5:36 AM) (05/01/18 12:51 PM) eGFR 88 mL/min/1.73m2 1 67 mL/min/1.73m2 2 64 mL/min/1.73m2 3 *NA* *NA* *NA* (05/03/18 5:36 AM) (05/01/18 12:52 PM) (05/01/18 12:51 PM) BUN [7-22 mg/dL] 11 mg/dL 19 mg/dL (05/03/18 5:36 AM) (05/01/18 12:51 PM) B/C Ratio [6-25] 13 (05/03/18 5:36 AM) Glucose Lvl [70-99 mg/dL] 99 mg/dL 100 mg/dL (05/03/18 5:36 AM) *HI* (05/01/18 12:51 PM) POC Creatinine [0.5-1.4 1.1 mg/dL mg/dL] (05/01/18 12:52 PM) POC BUN [7-22 mg/dL] 18 mg/dL (05/01/18 12:52 PM) POC Glucose [70-99 mg/dL] 104 mg/dL *HI* (05/01/18 12:52 PM) Total Protein [6.4-8.4 6.3 g/dL g/dL] *LOW* (05/03/18 5:36 AM) Albumin Lvl [3.5-5.0 g/dL] 2.9 g/dL *LOW* (05/03/18 5:36 AM) Globulin [2.7-4.2 g/dL] 3.4 g/dL (05/03/18 5:36 AM) A/G Ratio [0.7-1.6] 0.9 (05/03/18 5:36 AM) Calcium Lvl [8.5-10.5 8.3 mg/dL 9.1 mg/dL mg/dL] *LOW* (05/01/18 12:51 PM) (05/03/18 5:36 AM) POC Ion Ca [1.05-1.25 1.13 mMol/L mMol/L] (05/01/18 12:52 PM) Phosphorus [2.5-4.5 mg/dL] 2.4 mg/dL *LOW* (05/03/18 5:36 AM) Magnesium Lvl [1.8-2.4 1.9 mg/dL mg/dL] (05/03/18 5:36 AM) ALT [0-65 unit/L] 17 unit/L (05/03/18 5:36 AM) AST [0-37 unit/L] 14 unit/L (05/03/18 5:36 AM) Alk Phos [39-136 unit/L] 65 unit/L (05/03/18 5:36 AM) Bili Total [0.2-1.3 mg/dL] 1.1 mg/dL (05/03/18 5:36 AM) 1Result Comment: The eGFR is calculated using the CKD-EPI formula. In most young , healthy individualsthe eGFR will be >90 mL/min/1.73m2. The eGFR declines with age. An eGFR of 60-89 may be normal insome populations, particularly the elderly, for whom the CKD-EPI formula has not been extensively validated. Use of the eGFR is not recommended in the following populations: Individuals with unstable creatinine concentrations, including patients and those with serious co-morbid conditions. Patients with extremes in muscle mass or diet. The data above are obtained from the National Kidney Disease Education Program ( NKDEP) which additionally recommends that when the eGFR is used in patients with extremes of body mass index for purposesof drug dosing, the eGFR should be multiplied by the estimated BMI.2Result Comment: The eGFR is calculated using the CKD-EPI formula. In most young, healthy individualsthe eGFR will be >90 mL/min/1.73m2. The eGFR declines with age. An eGFR of 60-89 may be normal insome populations, particularly the elderly, for whom the CKD-EPI formula has not been extensively validated. Use of the eGFR is not recommended in the following populations: Individuals with unstable creatinine concentrations, including patients and those with serious co-morbid conditions. Patients with extremes in muscle mass or diet. The data above are obtained from the National Kidney Disease Education Program ( NKDEP) which additionally recommends that when the eGFR is used in patients with extremes of body mass index for purposesof drug dosing, the eGFR should be multiplied by the estimated BMI.3Result Comment: The eGFR is calculated using the CKD-EPI formula. In most young, healthy individualsthe eGFR will be >90 mL/min/1.73m2. The eGFR declines with age. An eGFR of 60-89 may be normal insome populations, particularly the elderly, for whom the CKD-EPI formula has not been extensively validated. Use of the eGFR is not recommended in the following populations: Individuals with unstable creatinine concentrations, including patients and those with serious co-morbid conditions. Patients with extremes in muscle mass or diet. The data above are obtained from the National Kidney Disease Education Program ( NKDEP) which additionally recommends that when the eGFR is used in patients with extremes of body mass index for purposesof drug dosing, the eGFR should be multiplied by the estimated BMI.CARDIAC ENZYMES Most recent to oldest [Reference Range]: 1 2 3 Total CK [12-191 unit/L] 99 unit/L (05/01/18 12:51 PM) Troponin-I [0.00-0.40 ng/mL] 0.02 ng/mL (05/01/18 12:51 PM) LIPIDS Most recent to oldest [Reference Range]: 1 2 3 CHD Risk [4.00-7.30] 3.66 *LOW* (05/01/18 12:51 PM) Chol [<=199 mg/dL] 194 mg/dL (05/01/18 12:51 PM) Trig [<=149 mg/dL] 118 mg/dL (05/01/18 12:51 PM) HDL [>=61 mg/dL] 53 mg/dL *LOW* (05/01/18 12:51 PM) LDL (Calculated) [<=99 mg/dL] 117 mg/dL *HI* (05/01/18 12:51 PM) VLDL 24 *NA* (05/01/18 12:51 PM) SPECIAL CHEMISTRY Most recent to oldest [Reference Range]: 1 2 3 Hgb A1C [<=5.6 %] 5.5 % (05/01/18 12:51 PM) URINE AND STOOL Most recent to oldest [Reference Range]: 1 2 3 UA Turbidity [Clear] Clear (05/02/18 8:43 AM) UA Color [Yellow] Yellow *NA* (05/02/18 8:43 AM) UA pH [5.0-8.0] 7.0 (05/02/18 8:43 AM) UA Spec Grav [<=1.030] 1.010 (05/02/18 8:43 AM) UA Glucose [Negative] Negative (05/02/18 8:43 AM) UA Blood [Negative] Large *ABN* (05/02/18 8:43 AM) UA Ketones [Negative] Negative *NA* (05/02/18 8:43 AM) UA Protein [Negative mg/dL] 30 mg/dL *ABN* (05/02/18 8:43 AM) UA Urobilinogen [0.1-1.0 EU/dL] 2.0 EU/dL *HI* (05/02/18 8:43 AM) UA Bili [Negative] Negative *NA* (05/02/18 8:43 AM) UA Leuk Est [Negative] Trace *ABN* (05/02/18 8:43 AM) UA Nitrite [Negative] Negative (05/02/18 8:43 AM) UA WBC [0-5 /HPF] 18 /HPF *HI* (05/02/18 8:43 AM) UA RBC [0-2 /HPF] 94 /HPF *HI* (05/02/18 8:43 AM) UA Sq Epi [Few /LPF] Occasional /LPF *NA* (05/02/18 8:43 AM) UA Mucus [None Seen /LPF] Few /LPF *NA* (05/02/18 8:43 AM) HEMATOLOGY Most recent to oldest [Reference Range]: 1 2 3 WBC [3.7-10.4 K/CMM] 7.4 K/CMM 7.8 K/CMM (05/03/18 5:36 AM) (05/01/18 12:51 PM) RBC [4.70-6.10 M/CMM] 4.01 M/CMM 4.45 M/CMM *LOW* *LOW* (05/03/18 5:36 AM) (05/01/18 12:51 PM) Hgb [14.0-18.0 g/dL] 12.5 g/dL 14.0 g/dL *LOW* (05/01/18 12:51 PM) (05/03/18 5:36 AM) Hct [42.0-54.0 %] 37.3 % 41.3 % *LOW* *LOW* (05/03/18 5:36 AM) (05/01/18 12:51 PM) POC Hemoglobin [14.0-18.0 g/dL] 13.6 g/dL *LOW* (05/01/18 12:52 PM) POC Hematocrit [42.0-54.0 %] 40.0 % *LOW* (05/01/18 12:52 PM) MCV [80.0-94.0 fL] 93.0 fL 92.8 fL (05/03/18 5:36 AM) (05/01/18 12:51 PM) MCH [27.0-31.0 pg] 31.3 pg 31.4 pg *HI* *HI* (05/03/18 5:36 AM) (05/01/18 12:51 PM) MCHC [32.0-36.0 g/dL] 33.6 g/dL 33.9 g/dL (05/03/18 5:36 AM) (05/01/18 12:51 PM) RDW [11.5-14.5 %] 13.6 % 13.3 % (05/03/18 5:36 AM) (05/01/18 12:51 PM) MPV [7.4-10.4 fL] 10.2 fL 10.0 fL (05/03/18 5:36 AM) (05/01/18 12:51 PM) Platelet [133-450 K/CMM] 160 K/CMM 187 K/CMM (05/03/18 5:36 AM) (05/01/18 12:51 PM) Segs [45.0-75.0 %] 72.7 % 83.0 % (05/03/18 5:36 AM) *HI* (05/01/18 12:51 PM) Lymphocytes [20.0-40.0 %] 14.0 % 9.2 % *LOW* *LOW* (05/03/18 5:36 AM) (05/01/18 12:51 PM) Monocytes [2.0-12.0 %] 8.0 % 5.3 % (05/03/18 5:36 AM) (05/01/18 12:51 PM) Eosinophils [0.0-4.0 %] 4.3 % 1.4 % *HI* (05/01/18 12:51 PM) (05/03/18 5:36 AM) Basophils [0.0-1.0 %] 1.0 % 1.1 % (05/03/18 5:36 AM) *HI* (05/01/18 12:51 PM) Neutrophils # [1.5-8.1 K/CMM] 5.4 K/CMM 6.4 K/CMM (05/03/18 5:36 AM) (05/01/18 12:51 PM) Lymphocytes # [1.0-5.5 K/CMM] 1.0 K/CMM 0.7 K/CMM (05/03/18 5:36 AM) *LOW* (05/01/18 12:51 PM) Monocytes # [0.0-0.8 K/CMM] 0.6 K/CMM 0.4 K/CMM (05/03/18 5:36 AM) (05/01/18 12:51 PM) Eosinophils # [0.0-0.5 K/CMM] 0.3 K/CMM 0.1 K/CMM (05/03/18 5:36 AM) (05/01/18 12:51 PM) Basophils # [0.0-0.2 K/CMM] 0.1 K/CMM 0.1 K/CMM (05/03/18 5:36 AM) (05/01/18 12:51 PM) PT [12.0-14.7 seconds] 13.1 seconds (05/01/18 12:51 PM) INR [0.85-1.17] 1.01 (05/01/18 12:51 PM) PTT [22.9-35.8 seconds] 28.2 seconds (05/01/18 12:51 PM) Plav Effect Plt 24 PRU *NA* (05/03/18 5:36 AM) Microbiology Reports TEST:Culture: Urine STATUS:Auth (Verified) BODY SITE: SOURCE:Urine, Clean Catch COLLECTED DATE/TIME:05/02/18 8:43 AMFINAL REPORTNo Growth Immunizations No data available for this section Procedures Procedure Date Related Diagnosis Body Site Status Appendectomy Completed Esophagogastroduodenoscopy Completed Transesophageal echocardiogram1 Completed 1with possible cardioversion Social History Social History Type Response Substance Abuse Use: None. Sexual Sexually active: No. Exercise Exercise duration: 0. Employment/School Status: Retired. Alcohol Never Smoking Status Former smoker; Exposure to Tobacco Smoke None; Cigarette Smoking Last 365 Days No; Reg Smoking Cessation Counseling No entered on: 05/01/18 Assessment and Plan Extracted from: Title: Clinical Document Author: Perfecto Ocasio MD Date: 05/03/18 Date of admission: 05/01/2018. Date of discharge: 05/03/2018. Discharge diagnoses: 1. Acute right MCA ischemic stroke. 2. Atrial fibrillation. Rate controlled. 3. Hypertension 4. Dyslipidemia 5. Hypokalemia 6. Hypophosphatemia. Consultants requested on the case: 1. Neurology: Dr. Denise. 2. Cardiology: Dr. Mitchell. 3. Neuro endovascular: Dr. Gracia [facility] course: Patient is a 72-year-old male with [...] gabriel gonzalez was seen by his primary ride operator Dr. Mitchell who then further discussed [...] of discharge: More than 30 minutes Extracted from: Title: Clinical Document Author: Kishore Denise MD Date: 05/03/18 NEUROLOGY & CRITICAL CARE MEDICINE [facility] Consultation / Progress Note NEUROLOGICAL INTENSIVE CARE [...] GI No nausea, vomiting, diahhrea, melena, blood VA. No new urgency, frequency, pain, or urine malodor. Vital Signs (last 24 hrs) Last Charted Temp Oral 97.8 DegF (MAY 03 12:00) Heart Rate Apical 63 bpm (MAY 03 13:00) Resp Rate 18 BRMIN (MAY 03 13:00) SBP H 154mmHg (MAY 03 13:00) DBP 88 mmHg (MAY 03 13:00) SpO2 98 % (MAY 03 13:00) Exam Neuro Awake. Smiling. Demonstrates no lateralizing weakness. Visual munson intact bilaterally Appears to have made a [...] 250 mg oral tablet) 250 mg PO [id number] 05/04/18 9:00 lisinopril 40 mg PO Daily [...] 1-one 2-neither 0 1c. Commands open/close eyes, neurological physiotherapist/release non-paretic hand: 0-both 1-one 2- neither 0 2. Best Gaze: 0-normal 1-partial 2-forced gaze 0 3. Visual Munson: 0-No visual loss. 1-Partial hemianopia 2-Complete 3- [...] Extinction / Inattention (formerly Neglect): 0-none 1-partial 2-complete 1 TOTAL 9 Extracted from: Title: H&P Author: Butch Neil MD Date: 05/01/18 [...] to the neuro unit Telemetry monitoring Neuro regulatory affairs assistant consulted Pending decision for emergent neurosurgical intervention Will allow for permissive hypertension If systolic blood pressure greater than 200 will start on Cardene drip Neurochecks per protocol Will need further imaging including echocardiogram PT/OT/ST eval and treat Supportive care management
--- OUTSIDE RECORDS SUMMARY | 2018-10-25 11:01 | XMS REPORT | Summary of Care ---
:1945 Author Organization [facility] Address [address] [place] [address]- Encounter HQ Kyle_marco(FIN) [id number] Date(s): 05/27/18 - 05/27/18 [facility] [address] [place] [address]- [phone] Discharge Disposition: Home or Self Care Attending Physician: Dejon Velazquez MD Referring Physician: Kishore Denise MD Vital Signs Most recent to oldest [Reference Range]: 1 Height 162.56 cm (05/27/18 9:26 AM) Blood Pressure [90-140/60-90 mmHg] 169/85 mmHg *HI* (05/27/18 9:26 AM) Peripheral Pulse Rate [60-100 bpm] 55 bpm *LOW* (05/27/18 9:26 AM) Weight 84.148 kg (05/27/18 9:26 AM) Body Mass Index 31.84 m2 (05/27/18 9:26 AM) Problem List Condition Effective Dates Status Health Status Informant Afib(Confirmed) Resolved Cataract(Confirmed) Resolved Stroke(Confirmed) Active High blood pressure(Confirmed) Resolved Simple obesity(Confirmed) Active Allergies, Adverse Reactions, Alerts Substance Reaction Severity Status NKFA Active NKDA Active Medications No Known Medications Results No data available for this section Immunizations No data available for this section [...] Smoking Cessation Counseling No entered on: 05/27/18 Assessment and Plan No data available for this section
--- OUTSIDE RECORDS SUMMARY | 2018-10-25 11:01 | XMS REPORT | Summary of Care ---
:1945 Author Organization [facility] Address [address] [place] [address]- Encounter HQ Omar(MANUELA) [id number] Date(s): 02/26/18 - 02/26/[address] [address]- [phone] Discharge Disposition: Home or Self Care Attending Physician: Ramses Grimm MD Vital Signs Most recent to oldest [Reference Range]: 1 Height 167.64 cm (02/26/18 2:24 PM) Temperature Oral [96.4-99.1 DegF] 97.6 DegF (02/26/18 2:24 PM) Blood Pressure [90-140/60-90 mmHg] 150/83 mmHg *HI* (02/26/18 2:24 PM) Respiratory Rate [14-20 BRMIN] 16 BRMIN (02/26/18 2:24 PM) Peripheral Pulse Rate [60-100 bpm] 71 bpm (02/26/18 2:24 PM) Weight 84.091 kg (02/26/18 2:24 PM) Body Mass Index 29.92 m2 (02/26/18 2:24 PM) Problem List Condition Effective Dates Status Health Status Informant Afib(Confirmed) Resolved Cataract(Confirmed) Resolved Stroke(Confirmed) Active High blood pressure(Confirmed) Resolved Simple obesity(Confirmed) Active Allergies, Adverse Reactions, Alerts No Known Medication Allergies Substance Reaction Severity Status NKFA Active Medications tamsulosin 0.4 mg oral capsule 0.4 mg=1 cap, PO, Daily, # 30 cap, 0 Refill(s) Start Date: 02/26/18 Status: Ordered Results No data available for this section [...]
--- OUTSIDE RECORDS SUMMARY | 2018-10-25 11:01 | XMS REPORT | Summary of Care ---
:1945 Author Organization [facility] Address [address] [address]- Encounter HQ Delmantr_marco(FIN) [id number] Date(s): 02/20/18 - 02/20/[address] [address]- Attending Physician: Ramses Grimm MD Vital Signs No data available for this section Problem List Condition Effective Dates Status Health Status Informant Afib(Confirmed) Resolved Cataract(Confirmed) Resolved Stroke(Confirmed) Active High blood pressure(Confirmed) Resolved Simple obesity(Confirmed) Active Allergies, Adverse Reactions, Alerts No Known Medication Allergies Substance Reaction Severity Status NKFA Active Medications No data available for this section Results No data available for this section [...]
--- OUTSIDE RECORDS SUMMARY | 2018-10-25 11:02 | XMS REPORT | Summary of Care ---
:1945 Author Organization [facility] Address [address] [place] [address]- Encounter HQ Omar(FIN) [id number] Date(s): 03/14/18 - 03/14/[address] [address]- Discharge Disposition: Home or Self Care Attending Physician: Emily Mitchell MD Referring Physician: Emily Mitchell MD Vital Signs Most recent to oldest [Reference Range]: 1 Height 165.1 cm (03/13/18 5:45 AM) Weight 84.545 kg (03/13/18 5:45 AM) Body Mass Index 31.02 m2 (03/13/18 5:45 AM) Problem List Condition Effective Dates Status Health Status Informant Simple obesity(Confirmed) Active Allergies, Adverse Reactions, Alerts Substance Reaction Severity Status NKFA Active NKDA Active Medications AMIODarone 200 mg oral tablet 200 mg=1 tab, PO, Daily, # 30 tab, 0 Refill(s), Pharmacy: [id number] Start Date: 03/14/18 Stop Date: 04/13/18 Status: Orderedfurosemide 20 mg oral tablet 20 mg=1 tab, PO, Daily, # 60 tab, 0 Refill(s), Pharmacy: [id number] Start Date: 03/14/18 Status: Orderedlisinopril 10 mg oral tablet 10 mg=1 tab, PO, BID Start Date: 03/12/18 Status: Ordered Results No data available for this section Immunizations No data available for this section Procedures Procedure Date Related Diagnosis Body Site Status Appendectomy Completed Esophagogastroduodenoscopy Completed Transesophageal echocardiogram1 Completed 1with possible cardioversion Social History Social History Type Response Substance Abuse Use: None. Sexual Sexually active: No. Exercise Exercise duration: 0. Employment/School Status: Retired. Alcohol Past Smoking Status Former smoker; Exposure to Tobacco Smoke None; Cigarette Smoking Last 365 Days No; Reg Smoking Cessation Counseling No entered on: 03/12/18 Assessment and Plan No data available for this section
--- OUTSIDE RECORDS SUMMARY | 2018-10-25 11:02 | XMS REPORT | Summary of Care ---
:1945 Author Organization [address] [address]- Encounter HQ Omar(MANUELA) [id number] Date(s): 02/13/18 - 02/13/[address] [address]- Discharge Disposition: Home or Self Care Attending Physician: Ramses Grimm MD Vital Signs Most recent to oldest [Reference Range]: 1 2 Height 167.64 cm (02/13/18 10:06 AM) Temperature Oral [96.4-99.1 DegF] 98.3 DegF (02/13/18 10:06 AM) Blood Pressure [90-140/60-90 mmHg] 190/140 mmHg 183/130 mmHg *HI* *HI* (02/13/18 10:11 AM) (02/13/18 10:06 AM) Respiratory Rate [14-20 BRMIN] 16 BRMIN 16 BRMIN (02/13/18 10:11 AM) (02/13/18 10:06 AM) Peripheral Pulse Rate [60-100 bpm] 101 bpm 106 bpm *HI* *HI* (02/13/18 10:11 AM) (02/13/18 10:06 AM) Weight 85.909 kg (02/13/18 10:06 AM) Body Mass Index 30.57 m2 (02/13/18 10:06 AM) Problem List Condition Effective Dates Status Health Status Informant Afib(Confirmed) Resolved Cataract(Confirmed) Resolved Stroke(Confirmed) Active High blood pressure(Confirmed) Resolved Simple obesity(Confirmed) Active Allergies, Adverse Reactions, Alerts No Known Medication Allergies Substance Reaction Severity Status NKFA Active Medications No Known Medications Results No [...]
--- OUTSIDE RECORDS SUMMARY | 2018-10-25 11:02 | XMS REPORT | Summary of Care ---
:1945 Author Organization [facility] Address [address] [place] [address]- Encounter HQ Delmantr_marco(FIN) [id number] Date(s): 09/26/18 - 09/26/18 [facility] [address] [place] [address]- [phone] Attending Physician: Dejon Velazquez MD Referring Physician: Kishore Denise MD Vital Signs No data available for [...] cardioversion Social History Social History Type Response Alcohol Never Employment/School Status: Retired. Exercise Exercise duration: 0. Sexual Sexually active: No. Substance Abuse Use: None. Smoking Status Former smoker; Exposure to Tobacco Smoke None; Cigarette Smoking Last 365 Days No; Reg Smoking Cessation Counseling No entered on: 05/27/18 Assessment and Plan No data available for this section
--- OUTSIDE RECORDS SUMMARY | 2018-10-25 11:02 | XMS REPORT | Summary of Care ---
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) - Pure hypercholesterolemia, unspecified (Final) - USP (current) use of anticoagulants (Final) - Other retirement (current) drug therapy (Final) - 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) - Discharge Disposition: Home or Self Care Attending [...] Substance Reaction Severity Status NKFA Active Medications AMIODarone 200 mg oral tablet 200 mg=1 tab, PO, Daily, # 30 tab, 0 Refill(s), [id number] Start Date: 03/14/18 Stop Date: 04/13/18 Status: Orderedfurosemide 20 mg oral tablet 20 mg=1 tab, PO, Daily, # 60 tab, 0 Refill(s), Pharmacy: [id number] Start Date: 03/14/18 Stop Date: 05/03/18 Status: Discontinuedlisinopril 10 mg oral tablet 10 mg=1 tab, PO, BID Start Date: 03/12/18 Stop Date: 05/03/18 Status: Discontinued Results No data available for this section [...]
--- OUTSIDE RECORDS SUMMARY | 2018-10-25 11:02 | XMS REPORT | Summary of Care ---
:1945 Author Organization [facility] Address [address] [place] [address]- Encounter HQ Kyle_marco(FIN) [id number] Date(s): 02/13/18 - 02/14/[address] [address]- Encounter Diagnosis Hypertensive crisis, unspecified (Final) - 02/19/18 Unspecified atrial fibrillation (Final) - Pneumonia, unspecified organism (Final) - Hypertensive heart disease with heart failure (Final) - Acute on chronic combined systolic (congestive) and diastolic (congestive) heart failure (Final) - Hyperlipidemia, unspecified (Final) - terminal carman (current) use of anticoagulants (Final) - Other rat exterminator (current) drug therapy (Final) - Personal history of nicotine dependence (Final) - Discharge Disposition: Home or Self Care Vital Signs Most recent to oldest 1 2 3 [Reference Range]: Height 172.72 cm 172.72 cm (02/13/18 9:30 PM) (02/13/18 7:36 PM) Temperature Oral [96.4-99.1 97.7 DegF 97.6 DegF 97.8 DegF DegF] (02/14/18 1:03 PM) (02/14/18 9:01 AM) (02/14/18 4:33 AM) Blood Pressure [90-140/60-90 151/78 mmHg 164/112 mmHg 159/90 mmHg mmHg] *HI* *HI* *HI* (02/14/18 1:03 PM) (02/14/18 9:01 AM) (02/14/18 4:33 AM) Respiratory Rate [14-20 BRMIN] 16 BRMIN 16 BRMIN 16 BRMIN (02/14/18 1:03 PM) (02/14/18 9:01 AM) (02/14/18 4:33 AM) Peripheral Pulse Rate [60-100 82 bpm 94 bpm 67 bpm bpm] (02/14/18 1:03 PM) (02/14/18 9:01 AM) (02/14/18 4:33 AM) Weight 77.273 kg 77.273 kg 77.273 kg (02/13/18 9:30 PM) (02/13/18 7:36 PM) (02/13/18 3:16 PM) Body Mass Index 25.9 m2 25.9 m2 (02/13/18 9:30 PM) (02/13/18 7:36 PM) Problem List Condition Effective Dates Status Health Status Informant Afib(Confirmed) Resolved Cataract(Confirmed) Resolved Stroke(Confirmed) Active High blood pressure(Confirmed) Resolved Simple obesity(Confirmed) Active Allergies, Adverse Reactions, Alerts No Known Medication Allergies Substance Reaction Severity Status NKFA Active Medications Advil 200 mg oral tablet 200 mg=1 tab, PO, Q4H, PRN Pain Start Date: 02/13/18 Stop Date: 03/14/18 Status: DiscontinuedAMIODarone 200 mg, 1 tab, Route: PO, Drug form: TAB, BID, Dosing Weight 77.273, kg, Start date: 02/14/18 9:00:00 KILN STACKER, Duration: 30 day, Stop date: 03/15/18 17:00:00 KILN STACKER Notes: (Same as: Cordarone) Start Date: 02/14/18 Stop Date: 02/14/18 Status: DiscontinuedAMIODarone 200 mg oral tablet 200 mg=1 tab, PO, BID, # 60 tab, 0 Refill(s), [id number] Start Date: 02/14/18 Stop Date: 03/14/18 Status: DiscontinuedAMIODarone 200 mg oral tablet 200 mg=1 tab, PO, BID, # 60 tab, 0 Refill(s), [facility] [id number] Start Date: 02/14/18 Stop Date: 02/14/18 Status: Discontinuedapixaban 5 mg oral tablet 5 mg=1 tab, PO, BID, # 60 tab, 0 Refill(s), [facility] Start Date: 02/14/18 Stop Date: 05/03/18 Status: Discontinuedapixaban 5 mg oral tablet 5 mg=1 tab, PO, BID, # 60 tab, 0 Refill(s), Pharmacy: [facility] [id number] Start Date: 02/14/18 Stop Date: 02/14/18 Status: Discontinuedazithromycin + Sodium Chloride 0.9% IV 250 mL 500 mg, Route: IVPB, [id number], Dosing Weight 77.273, kg, Start date: 02/13/18 21: 00:00 KILN STACKER, Duration:5 day, Stop date: 02/17/18 21:00:00 KILN STACKER, ABX Indication: Pneumonia Notes: (Same As: Zithromax IV) Start Date: 02/13/18 Stop Date: 02/14/18 Status: DiscontinuedAzithromycin 3 Day Dose Pack 500 mg oral tablet 500 mg=1 tab, PO, Daily, X 3 day, # 1 Pack, 0 Refill(s), Pharmacy: [facility] [id number] Start Date: 02/14/18 Stop Date: 02/14/18 Status: DiscontinuedAzithromycin 3 Day Dose Pack 500 mg oral tablet 500 mg=1 tab, PO, Daily, X 3 day, # 1 Pack, 0 Refill(s), Pharmacy: [id number] Start Date: 02/14/18 Stop Date: 02/17/18 Status: CompletedcefTRIAXone + Sodium Chloride 0.9% IV 100 mL 1 gm, Route: IVPB, [id number], Dosing Weight 77.273, kg, Start date: 02/13/18 21:00 :00 KILN STACKER, Duration: 7day, Stop date: 02/19/18 21:00:00 KILN STACKER, ABX Indication: Pneumonia Notes: (Same As: Rocephin).Use with 100 mL NS and infuse over 30 min MEDICATION WASTE Product Size: 1000 mgProduct Wasted: ___ mg Start Date: 02/13/18 Stop Date: 02/14/18 Status: DiscontinuedEliquis 5 mg, 1 tab, Route: PO, Drug form: TAB, BID, Dosing Weight 77.273, kg, Start date: 02/13/18 17:00:00CST, Duration: 30 day, Stop date: 03/15/18 9:00:00 KILN STACKER Notes: Same as: Eliquis Start Date: 02/13/18 Stop Date: 02/14/18 Status: Discontinuedfurosemide 20 mg, 2 mL, Route: IVP, Drug form: INJ, BID, Dosing Weight 77.273, kg, Priority : STAT, Start date: 02/13/18 16:42:00 KILN STACKER, Duration: 4 doses or times, Stop date : 02/14/18 17:00:00 KILN STACKER Notes: (Same as: Lasix) Start Date: 02/13/18 Stop Date: 02/14/18 Status: Discontinuedfurosemide 20 mg oral tablet 20 mg=1 tab, PO, BID, # 60 tab, 0 Refill(s), Pharmacy: [id number] Start Date: 02/14/18 Stop Date: 03/14/18 Status: Discontinuedfurosemide 20 mg oral tablet 20 mg, 1 tab, Route: PO, Drug form: TAB, BID, Dosing Weight 77.273, kg, Start date: 02/14/18 9:00:00CST, Duration: 30 day, Stop date: 03/15/18 17:00:00 KILN STACKER Notes: (Same as: Lasix) May cause GI upset. Give with food or milk. Start Date: 02/14/18 Stop Date: 02/14/18 Status: Discontinuedfurosemide 20 mg oral tablet 20 mg=1 tab, PO, BID, # 60 tab, 0 Refill(s), Pharmacy: [facility] [id number] Start Date: 02/14/18 Stop Date: 02/14/18 Status: Discontinuedlabetalol 20 mg, 4 mL, Route: IVP, Drug form: INJ, ONCE, Dosing Weight 77.273, kg, Priority: STAT, Start date:02/13/18 16:22:00 KILN STACKER, Stop date: 02/13/18 16:22:00 KILN STACKER Notes: (Same as: Normodyne, Trandate)Push over 2 minutes Give bolus over 2-3 minutes. Start Date: 02/13/18 Stop Date: 02/13/18 Status: Completedlisinopril 5 mg, 1 tab, Route: PO, Drug form: TAB, BID, Dosing Weight 77.273, kg, Priority : STAT, Start date: 02/13/18 16:42:00 KILN STACKER, Duration: 30 day, Stop date: 9:00:00 KILN STACKER Notes: (Same as: Prinivil, Zestril) Start Date: 02/13/18 Stop Date: 02/14/18 Status: Discontinuedlisinopril 5 mg oral tablet 5 mg=1 tab, PO, BID, # 60 tab, 0 Refill(s), Pharmacy: [id number] Start Date: 02/14/18 Stop Date: 03/12/18 Status: Completedlisinopril 5 mg oral tablet 5 mg=1 tab, PO, BID, # 60 tab, 0 Refill(s), [facility]: [id number] Start Date: 02/14/18 Stop Date: 02/14/18 Status: Discontinuedmetoprolol tartrate 25 mg, 1 tab, Route: PO, Drug form: TAB, Q6H, Dosing Weight 77.273, kg, Priority : STAT, Start date: 02/13/18 16:42:00 KILN STACKER, Duration: 30 day, Stop date: 12:00:00 KILN STACKER Notes: (Same as: Lopressor) Start Date: 02/13/18 Stop Date: 02/14/18 Status: Discontinuedmetoprolol tartrate 50 mg, 1 tab, Route: PO, Drug form: TAB, BID, Dosing Weight 77.273, kg, Start date: 02/14/18 9:00:00CST, Duration: 30 day, Stop date: 03/15/18 17:00:00 KILN STACKER Notes: (Same as: Lopressor) Start Date: 02/14/18 Stop Date: 02/14/18 Status: Discontinuedmetoprolol tartrate 50 mg oral tablet 50 mg=1 tab, PO, BID, # 60 tab, 0 Refill(s), Pharmacy: [facility] Start Date: 02/14/18 Status: Orderedmetoprolol tartrate 50 mg oral tablet 50 mg=1 tab, PO, BID, # 60 tab, 0 Refill(s), Pharmacy: [facility] [id number] Start Date: 02/14/18 Stop Date: 02/14/18 Status: DiscontinuedSaline Flush 0.9% 10 mL, Route: IVP, Drug Form: INJ, Dosing Weight 85.909, kg, PRN, PRN Line Flush , Start date: 02/13/18 15:20:00 KILN STACKER, Duration: 30 day, Stop date: 03/15/18 15:19 :00 KILN STACKER Notes: (Same as: BD Posiflush) Start Date: 02/13/18 Stop Date: 02/14/18 Status: Discontinuedspironolactone 25 mg, 1 tab, Route: PO, Drug form: TAB, Daily, Dosing Weight 77.273, kg, Start date: 02/13/18 17:00:00 KILN STACKER, Duration: 30 day, Stop date: 03/15/18 9:00:00 KILN STACKER Notes: (Same As: Aldactone) Start Date: 02/13/18 Stop Date: 02/14/18 Status: Discontinuedspironolactone 25 mg oral tablet 25 mg=1 tab, PO, QPM, # 30 tab, 0 Refill(s), Pharmacy: [id number] Start Date: 02/14/18 Stop Date: 06/02/18 Status: Orderedspironolactone 25 mg oral tablet 25 mg=1 tab, PO, Daily, # 30 tab, 0 Refill(s), Pharmacy: [facility] [id number] Start Date: 02/14/18 Stop Date: 02/14/18 Status: Discontinued Results Most recent to oldest 1 2 3 [Reference Range]: Neutrophils # [1.5-8.1 K/CMM] 6.1 K/CMM (02/13/18 3:44 PM) Lymphocytes # [1.0-5.5 K/CMM] 1.2 K/CMM (02/13/18 3:44 PM) Monocytes # [0.0-0.8 K/CMM] 0.5 K/CMM (02/13/18 3:44 PM) Eosinophils # [0.0-0.5 K/CMM] 0.1 K/CMM (02/13/18 3:44 PM) Basophils # [0.0-0.2 K/CMM] 0.1 K/CMM (02/13/18 3:44 PM) BNP [<=100 pg/mL] 307 pg/mL *HI* (02/13/18 3:44 PM) eGFR 87 mL/min/1.73m2 1 76 mL/min/1.73m2 2 *NA* *NA* (02/14/18 4:34 AM) (02/13/18 3:44 PM) A/G Ratio [0.7-1.6] 0.9 (02/13/18 3:44 PM) Albumin Lvl [3.5-5.0 g/dL] 3.3 g/dL *LOW* (02/13/18 3:44 PM) Alk Phos [39-136 unit/L] 80 unit/L (02/13/18 3:44 PM) ALT [0-65 unit/L] 64 unit/L (02/13/18 3:44 PM) AGAP [10.0-20.0 mEq/L] 15.2 mEq/L 13.7 mEq/L (02/14/18 4:34 AM) (02/13/18 3:44 PM) AST [0-37 unit/L] 23 unit/L (02/13/18 3:44 PM) B/C Ratio [6-25] 16 (02/13/18 3:44 PM) Basophils [0.0-1.0 %] 1.0 % (02/13/18 3:44 PM) BUN [7-22 mg/dL] 16 mg/dL 16 mg/dL (02/14/18 4:34 AM) (02/13/18 3:44 PM) Calcium Lvl [8.5-10.5 mg/dL] 8.4 mg/dL 8.6 mg/dL *LOW* (02/13/18 3:44 PM) (02/14/18 4:34 AM) CHD Risk [4.00-7.30] 3.20 *LOW* (02/13/18 3:44 PM) Chol [<=199 mg/dL] 163 mg/dL (02/13/18 3:44 PM) Total CK [12-191 unit/L] 74 unit/L (02/13/18 3:44 PM) Chloride Lvl [95-109 mEq/L] 105 mEq/L 104 mEq/L (02/14/18 4:34 AM) (02/13/18 3:44 PM) CO2 [24-32 mEq/L] 26 mEq/L 27 mEq/L (02/14/18 4:34 AM) (02/13/18 3:44 PM) Creatinine Lvl [0.50-1.40 0.84 mg/dL 0.98 mg/dL mg/dL] (02/14/18 4:34 AM) (02/13/18 3:44 PM) Eosinophils [0.0-4.0 %] 1.7 % (02/13/18 3:44 PM) Globulin [2.7-4.2 g/dL] 3.8 g/dL (02/13/18 3:44 PM) Glucose Lvl [70-99 mg/dL] 112 mg/dL 109 mg/dL *HI* *HI* (02/14/18 4:34 AM) (02/13/18 3:44 PM) Hct [42.0-54.0 %] 41.7 % *LOW* (02/13/18 3:44 PM) HDL [>=61 mg/dL] 51 mg/dL *LOW* (02/13/18 3:44 PM) Hgb [14.0-18.0 g/dL] 14.3 g/dL (02/13/18 3:44 PM) INR [0.85-1.17] 1.02 (02/13/18 5:54 PM) Potassium Lvl [3.5-5.1 mEq/L] 3.2 mEq/L 3.7 mEq/L *LOW* (02/13/18 3:44 PM) (02/14/18 4:34 AM) LDL (Calculated) [<=99 mg/dL] 94 mg/dL (02/13/18 3:44 PM) Lymphocytes [20.0-40.0 %] 15.1 % *LOW* (02/13/18 3:44 PM) MCH [27.0-31.0 pg] 32.0 pg *HI* (02/13/18 3:44 PM) MCHC [32.0-36.0 g/dL] 34.4 g/dL (02/13/18 3:44 PM) MCV [80.0-94.0 fL] 93.0 fL (02/13/18 3:44 PM) Monocytes [2.0-12.0 %] 6.5 % (02/13/18 3:44 PM) MPV [7.4-10.4 fL] 12.0 fL *HI* (02/13/18 3:44 PM) Sodium Lvl [135-145 mEq/L] 143 mEq/L 141 mEq/L (02/14/18 4:34 AM) (02/13/18 3:44 PM) Platelet [133-450 K/CMM] 134 K/CMM (02/13/18 3:44 PM) Segs [45.0-75.0 %] 75.7 % *HI* (02/13/18 3:44 PM) Total Protein [6.4-8.4 g/dL] 7.1 g/dL (02/13/18 3:44 PM) PT [12.0-14.7 seconds] 13.2 seconds (02/13/18 5:54 PM) PTT [22.9-35.8 seconds] 31.9 seconds (02/13/18 5:54 PM) RBC [4.70-6.10 M/CMM] 4.49 M/CMM *LOW* (02/13/18 3:44 PM) RDW [11.5-14.5 %] 12.6 % (02/13/18 3:44 PM) Bili Total [0.2-1.3 mg/dL] 1.7 mg/dL *HI* (02/13/18 3:44 PM) Trig [<=149 mg/dL] 92 mg/dL (02/13/18 3:44 PM) Troponin-I [0.00-0.40 ng/mL] 0.07 ng/mL 0.07 ng/mL 0.06 ng/mL (02/14/18 4:34 AM) (02/13/18 10:59 PM) (02/13/18 3:44 PM) UA Bacteria [None Seen /HPF] Occasional /HPF *NA* (02/13/18 3:44 PM) UA Bili [Negative] Negative *NA* (02/13/18 3:44 PM) UA Blood [Negative] Negative (02/13/18 3:44 PM) UA Color Anuradha *NA* (02/13/18 3:44 PM) UA Glucose [Negative] Negative *NA* (02/13/18 3:44 PM) UA Hyal Cast [0-2 /LPF] 3 /LPF *HI* (02/13/18 3:44 PM) UA Ketones [Negative] Trace *ABN* (02/13/18 3:44 PM) UA Leuk Est [Negative] Negative (02/13/18 3:44 PM) UA Mucus [None Seen /LPF] Few /LPF *NA* (02/13/18 3:44 PM) UA Nitrite [Negative] Negative (02/13/18 3:44 PM) UA pH [5.0-8.0] 5.0 (02/13/18 3:44 PM) UA Protein [Negative mg/dL] 30 mg/dL *ABN* (02/13/18 3:44 PM) UA RBC [0-2 /HPF] 3 /HPF *HI* (02/13/18 3:44 PM) UA Spec Grav [<=1.030] 1.024 (02/13/18 3:44 PM) UA Sq Epi [Few] None Seen (02/13/18 3:44 PM) UA Turbidity [Clear] Clear (02/13/18 3:44 PM) UA Urobilinogen [0.1-1.0 2.0 EU/dL 3 EU/dL] *HI* (02/13/18 3:44 PM) UA WBC [0-5 /HPF] 3 /HPF (02/13/18 3:44 PM) WBC [3.7-10.4 K/CMM] 8.1 K/CMM (02/13/18 3:44 PM) Giant Plt [None Seen] Moderate *ABN* (02/13/18 3:44 PM) VLDL 18 *NA* (02/13/18 3:44 PM) 1Result Comment: The eGFR is calculated using [...] be multiplied by the estimated BMI.3Result Comment: Urobilinogen performed on the Clinitek analyzer. Immunizations No data available for this section [...] No entered on: 05/27/18 Assessment and Plan Extracted from: Title: History and Physical Author: Ovidio Blancas MD Date: 02/13/18 A-fib(I48.91) New onset of unknown duration. Cardiology is been consulted. He has been started on anticoagulation including rate control medication. Will order the TSHas part of the workup. Could be seco ndary to hissignificant hypertension history but need to rule out any underlyingcoronary disease. Further recommendation per cardiology. Ordered: Admit/Condition, 02/13/18 19:03:00 KILN STACKER, Status: Out Patient with Observation Services, Telemetry Capable Location, Expected LOS: 1 Midnight, Ovidio Blancas MD, Admit MD Review/Approve Yes, A-fib | Benign hypertension Benign hypertension(I10) Patient will be started on antihypertensive and adjust according to vitals. Ordered: Admit/Condition, 02/13/18 19:03:00 KILN STACKER, Status: Out Patient with Observation Services, Telemetry [...] by Ovidio Blancas MD on 02/13/2018 20:35 KILN STACKER CHF. Patient is found to havenew onsetmild [...] start him oncommunity acquired pneumonia protocolfor suspected gram- negative organism"
--- OUTSIDE RECORDS SUMMARY | 2018-10-25 11:02 | XMS REPORT | Summary of Care ---
:1945 Author Organization [facility] Address [address] [place] [address]- Encounter HQ Encntr_marco(FIN) [phone] Date(s): 05/23/18 - 05/24/18 [facility] [address] [place] [address]- [phone] Vital Signs No data available for this section Problem List Condition Effective Dates Status Health Status Informant Simple obesity(Confirmed) Active Allergies, Adverse Reactions, Alerts Substance Reaction Severity Status NKFA Active NKDA Active Medications No data available for this [...] No entered on: 05/01/18 Assessment and Plan No data available for this section
--- OUTSIDE RECORDS SUMMARY | 2018-10-25 11:02 | XMS REPORT | Summary of Care ---
:1945 Author Organization [facility] Address [address] [address]- Encounter HQ Samanthar_marco(FIN) [id number] Date(s): 02/26/18 - 02/26/18 [place] [id number] [address] [address]- [phone] Discharge Disposition: Home or Self Care Attending [...] Adverse Reactions, Alerts Substance Reaction Severity Status NKDA Active Medications tamsulosin 0.4 mg oral capsule 0.4 mg=1 cap, PO, Daily, # 30 cap, 0 Refill(s) Start Date: 02/26/18 Status: Ordered Results No data available for this section Immunizations No data available for this section Procedures No data available for this section Social History Social History Type Response Substance Abuse Use: None. Sexual Sexually active: No. Exercise Exercise duration: 0. Employment/School Status: Retired. Alcohol Past Smoking Status Never smoker; Exposure to Tobacco Smoke None; Cigarette Smoking Last 365 Days No; Reg Smoking Cessation Counseling No entered on: 02/26/18 Assessment and Plan No data available for this section
--- OUTSIDE RECORDS SUMMARY | 2018-10-25 11:02 | XMS REPORT | Summary of Care ---
:1945 Author Organization [facility] Address [address] [place] [address]- Encounter HQ Encntr_marco(FIN) [id number] Date(s): 05/21/18 - 05/22/18 [facility] [address] [place] [address]- [phone] Vital Signs No data available for this [...]
--- OUTSIDE RECORDS SUMMARY | 2018-10-25 11:02 | XMS REPORT | Summary of Care ---
:1945 Author Organization [facility] [address] [address]- Encounter HQ Encntr_alias(FIN) [id number] Date(s): 04/09/18 - 04/09/18 [facility] [address] [address]- [phone] Attending Physician: Ramses Grimm MD Vital Signs [...]
--- OUTSIDE RECORDS SUMMARY | 2018-10-25 11:03 | XMS REPORT ---
:1945 Author Organization [facility] Address [address] [place] [address] Care Team Providers Name Role Phone Unavailable Unavailable Unavailable Problems This patient has no known problems. Allergies, Adverse Reactions, Alerts This patient has no known allergies or adverse reactions. Medications This patient has no known medications. Encounters Start End Encounter Admission Attending Care Care Encounter Date/Time Date/Time Type Type Clinicians Facility Department ID 2018-05-01 Inpatient E [facility] [id number] 13:43:00
--- OUTSIDE RECORDS SUMMARY | 2018-10-25 11:03 | XMS REPORT ---
:1945 Author Organization [employer] Care Team Providers Name Role Phone KATHIE PAULA Provider Role Unavailable Allergies, Adverse Reactions, Alerts Substance Reaction Event Type N.K.D.A. Info Not Available Non Drug Allergy Problems Problem Type Condition Code Onset Dates Condition Status Problem Esophageal dysphagia R13.10 Active Problem Slow transit constipation K59.01 Active Assessment Slow transit constipation K59.01 Active Assessment Esophageal dysphagia R13.10 Active Assessment Colon cancer screening Z12.11 Active Medications Medication Code Code Instructions Start End Status Dosage System Date Date furosemide [facility] 19676644147 20 mg orally Active 1 tab(s) once a day metoprolol [facility] 94931969940 50 mg orally Active 1 tab(s) once a day lisinopril [facility] 13876953154 10 mg orally Active 1 tab(s) once a day Eliquis [facility] [id number] 5 mg orally 2 Active 1 tab(s) times a day spironolactone [facility] 79365312195 25 mg orally Active 1 tab(s) amiodarone [facility] 98556362112 200 mg orally Active 1 tab(s) once a day Vital Signs Date/Time: Feb 28, 2018 Blood Pressure Systolic 0000 mm Hg Weight 190 lbs Height 5'5 in Results No Known Results Summary Purpose [employer] Submission
--- NOTE | 2018-10-25 14:19 | ER ---
Nurse's Notes [facility] Name: Constantine Bishop Age: 72 yrs Sex: Male : 1945 Arrival Date: 10/25/2018 Time: 10:55 Bed 30 Private MD: Diagnosis: Encounter for removal of sutures;Encounter for change or removal of nonsurgical wound dressing Presentation: 10/25 11:13 Presenting complaint: Patient states: He had stitches put in his hand and cullen on the aj1 6th, and now he has come back to have the sutures removed. Transition of care: patient was not received from another setting of care. Onset of symptoms was October 11, 2018. Risk Assessment: Do you want to hurt yourself or someone else? Patient reports no desire to harm self or others. Initial Sepsis Screen: Does the patient meet any 2 criteria? No. Patient's initial sepsis screen is negative. Does the patient have a suspected source of infection? No. Patient's initial sepsis screen is negative. Care prior to arrival: None. 11:13 Method Of Arrival: Ambulatory aj 11:13 Acuity: JOSELYN 5 aj1 Triage Assessment: 11:15 General: Appears in no apparent distress. comfortable, Behavior is calm, cooperative, aj1 appropriate for age. Pain: Denies pain. Neuro: Level of Consciousness is awake, alert, obeys commands. Cardiovascular: Patient's skin is warm and dry. Respiratory: Airway is patent Respiratory effort is even, unlabored, Respiratory pattern is regular, symmetrical. Historical: - Allergies: 11:15 No Known Allergies; aj1 - Home Meds: 11:15 Plavix Oral [Active]; aj1 - PMHx: 11:15 CVA; aj1 - Immunization history:: Adult Immunizations up to date. - Social history:: Smoking status: Patient/guardian denies using tobacco. - Ebola Screening: : Patient denies travel to an Ebola-affected area in the 21 days before illness onset. Screenin:30 Abuse screen: Denies threats or abuse. Denies injuries from another. Nutritional hb screening: No deficits noted. Tuberculosis screening: No symptoms or risk factors identified. Fall Risk None identified. Assessment: 12:30 General: Appears in no apparent distress. Behavior is calm, cooperative. Pain: Denies hb pain. Neuro: Level of Consciousness is awake, alert, obeys commands, Oriented to person, place, time, situation. Cardiovascular: Capillary refill < 3 seconds Patient's skin is warm and dry. Respiratory: Airway is patent Respiratory effort is even, unlabored, Respiratory pattern is regular, symmetrical. GI: No signs and/or symptoms were reported involving the gastrointestinal system. : No signs and/or symptoms were reported regarding the genitourinary system. EENT: No signs and/or symptoms were reported regarding the EENT system. Derm: Skin is pink, warm \T\ dry. Wound noted Other: right lower leg. Musculoskeletal: No signs and/or symptoms reported regarding the musculoskeletal system. 13:30 Reassessment: Patient appears in no apparent distress at this time. Patient and/or hb family updated on plan of care and expected duration. Pain level reassessed. Patient is alert, oriented x 3, equal unlabored respirations, skin warm/dry/pink. Vital Signs: 11:15 BP 154 / 82; Pulse 68; Resp 18; Temp 98.3; Pulse Ox 99% on R/A; Weight 83.91 kg (R); aj1 Pain 0/10; 14:36 BP 138 / 86; Pulse 66; Resp 15; Pulse Ox 100% on R/A; rv ED Course: 10:55 Patient arrived in ED. as 11:14 Triage completed. aj1 11:15 Arm band placed on Patient placed in waiting room, Patient notified of wait time. aj1 11:37 Gay[facility] Infante [facility]-C [facility]. snw 11:37 Rashaad Garcia MD is Attending Physician. snw 13:45 Lorenzo Barnett RN is Primary Nurse. rv 14:00 Patient has correct armband on for positive identification. Bed in low position. Call rv light in reach. Side rails up X 1. Pulse ox on. NIBP on. 14:37 suture removal. Patient did not have IV access during this emergency room visit. Wound rv care: to old laceration located on right cullen was cleaned with Hibiclens, dressed with 4X4s, Patient tolerated well. Administered Medications: No medications were administered Outcome: 14:18 Discharge ordered by . snw 14:40 Discharged to home ambulatory, with family. rv 14:40 Condition: good 14:40 Discharge instructions given to patient, family, Instructed on discharge instructions, follow up and referral plans. wound care, Demonstrated understanding of instructions, follow-up care, wound care. 14:40 Patient left the ED. rv Signatures: Gilda Pineda RN RN aj1 Gayle Infante, CORPORATE STRATEGIST-C CORPORATE STRATEGIST-Csnw Margo Segovia Heather, RN RN Lorenzo Barnett RN RN rv
--- NOTE | 2018-10-25 14:19 | EDPHYS ---
Physician Documentation [facility] Name: Constantine Bsihop Age: 72 yrs Sex: Male : 1945 Arrival Date: 10/25/2018 Time: 10:55 Bed 30 Private MD: ED Physician Rashaad Garcia HPI: 10/25 14:13 This 72 yrs old Male presents to ER via Ambulatory with complaints of Suture snw Removal. 14:13 The patient has sutures on the right hand and right leg. Sutures/humberto progress: The snw patient's wound displays bleeding at site, lower right extremity with serosanguinous dc, sutures extremely difficult to use. The patient has not experienced similar symptoms in the past. The patient has been recently seen at the [facility] Emergency [facility], a couple of weeks ago. Historical: - Allergies: 11:15 No Known Allergies; aj1 - Home Meds: 11:15 Plavix Oral [Active]; aj1 - PMHx: 11:15 CVA; aj1 - Immunization history:: Adult Immunizations up to date. - Social history:: Smoking status: Patient/guardian denies using tobacco. - Ebola Screening: : Patient denies travel to an Ebola-affected area in the 21 days before illness onset. ROS: 14:11 Constitutional: Negative for fever, chills, and weight loss, Eyes: Negative for injury, snw pain, redness, and discharge, ENT: Negative for injury, pain, and discharge, Neck: Negative for injury, pain, and swelling, Cardiovascular: Negative for chest pain, palpitations, and edema, Respiratory: Negative for shortness of breath, cough, wheezing, and pleuritic chest pain, Abdomen/GI: Negative for abdominal pain, nausea, vomiting, diarrhea, and constipation, Back: Negative for injury and pain, : Negative for injury, bleeding, discharge, and swelling, MS/Extremity: Negative for injury and deformity, Neuro: Negative for headache, weakness, numbness, tingling, and seizure, Psych: Negative for depression, anxiety, suicide ideation, homicidal ideation, and hallucinations. 14:11 Skin: Positive for laceration(s), here for suture removal. Exam: 14:11 Constitutional: This is a well developed, well nourished patient who is awake, alert, snw and in no acute distress. Head/Face: Normocephalic, atraumatic. Eyes: Pupils equal round and reactive to light, extra-ocular motions intact. Lids and lashes normal. Conjunctiva and sclera are non-icteric and not injected. Cornea within normal limits. Periorbital areas with no swelling, redness, or edema. ENT: Nares patent. No nasal discharge, no septal abnormalities noted. Tympanic membranes are normal and external auditory canals are clear. Oropharynx with no redness, swelling, or masses, exudates, or evidence of obstruction, uvula midline. Mucous membranes moist. Neck: Trachea midline, no thyromegaly or masses palpated, and no cervical lymphadenopathy. Supple, full range of motion without nuchal rigidity, or vertebral point tenderness. No Meningismus. Chest/axilla: Normal chest wall appearance and motion. Nontender with no deformity. No lesions are appreciated. Cardiovascular: Regular rate and rhythm with a normal S1 and S2. No gallops, murmurs, or rubs. Normal PMI, no JVD. No pulse deficits. Respiratory: Lungs have equal breath sounds bilaterally, clear to auscultation and percussion. No rales, rhonchi or wheezes noted. No increased work of breathing, no retractions or nasal flaring. Abdomen/GI: Soft, non-tender, with normal bowel sounds. No distension or tympany. No guarding or rebound. No evidence of tenderness throughout. Back: No spinal tenderness. No costovertebral tenderness. Full range of motion. MS/ Extremity: Pulses equal, no cyanosis. Neurovascular intact. Full, normal range of motion. Neuro: Awake and alert, GCS 15, oriented to person, place, time, and situation. Cranial nerves II-XII grossly intact. Motor strength 5/5 in all extremities. Sensory grossly intact. Cerebellar exam normal. Normal gait. Psych: Awake, alert, with orientation to person, place and time. Behavior, mood, and affect are within normal limits. 14:11 Skin: Appearance: Color: pale, injury, laceration(s), the wound is approximately 5 cm(s), with a depth of 2 cm(s). Vital Signs: 11:15 BP 154 / 82; Pulse 68; Resp 18; Temp 98.3; Pulse Ox 99% on R/A; Weight 83.91 kg (R); aj1 Pain 0/10; 14:36 BP 138 / 86; Pulse 66; Resp 15; Pulse Ox 100% on R/A; rv MDM: 12:18 Patient medically screened. snw 14:10 Data reviewed: vital signs, nurses notes. Data interpreted: Pulse oximetry: on room air snw is 99 %. Interpretation: acceptable. Counseling: I had a detailed discussion with the patient and/or guardian regarding: the historical points, exam findings, and any diagnostic results supporting the discharge/admit diagnosis, the presence of at least one elevated blood pressure reading (>120/80) during this emergency department visit, the need for outpatient follow up, for definitive care, to return to the emergency department if symptoms worsen or persist or if there are any questions or concerns that arise at home. Response to treatment: the patient's symptoms have mildly improved after treatment. Special discussion: I have referred the patient to see his PCP for further evaluation of high blood pressure. 10/25 14:10 Order name: Wound Care; Complete Time: 14:36 snw 10/25 14:10 Order name: Wound dressing; Complete Time: 14:36 snw Administered Medications: No medications were administered Disposition: 15:43 Co-signature as Attending Physician, Rashaad Garcia MD I agree with the assessment and kdr plan of care. Disposition: 10/25/18 14:18 Discharged to Home. Impression: Encounter for removal of sutures, Encounter for change or removal of nonsurgical wound dressing. - Condition is Stable. - Discharge Instructions: Delayed Wound Closure, How to Change Your Dressing, Wound Infection, Wound Care. - Medication Reconciliation Form, Thank You Letter, Antibiotic Education, Prescription Opioid Use form. - Follow up: Private Physician; When: 2 - 3 days; Reason: Recheck today's complaints, Continuance of care, Re-evaluation by your physician. Follow up: Emergency Department; When: As needed; Reason: Worsening of condition. Signatures: Gilda Pineda, RN RN aj1 Rashaad Garcia MD MD [facility] Gayle Infante, MANAGER OF PURCHASING-C MANAGER OF PURCHASING-Csnw Lorenzo Barnett RN RN rv Corrections: (The following items were deleted from the chart) 14:40 14:18 10/25/2018 14:18 Discharged to Home. Impression: Encounter for removal of rv sutures; Encounter for change or removal of nonsurgical wound dressing. Condition is Stable. Forms are Medication Reconciliation Form, Thank You Letter, Antibiotic Education, Prescription Opioid Use. Follow up: Private Physician; When: 2 - 3 days; Reason: Recheck today's complaints, Continuance of care, Re-evaluation by your physician. Follow up: Emergency Department; When: As needed; Reason: Worsening of condition. snw
[2018-10-25 14:57] VITALS: TEMP 98.3
[2018-10-25 14:58] VITALS: BP 138/86; O2SAT 100
== END 2018-10-25 14:40 | disposition home or self-care (01) ==
LOC: ER 10:53
DX: Z48.02 Encounter for removal of sutures (principal); Z48.00 Encounter for change or removal of nonsurgical wound dressing; Z79.01 Long term (current) use of anticoagulants; Z86.73 Personal history of transient ischemic attack (TIA), and cerebral infarction without residual deficits
CPT/HCPCS: 99283